=== PATIENT | female | born 1970 | race Caucasian/White ===

== ENCOUNTER 2017-11-09 02:26 | Emergency (ER) | payer MEDICAID ==
[~2017-11-09] VITALS: Ht 165.1 cm; Wt 68.2 kg
[~2017-11-09 02:26] MED LIST: BAC15O TP; CEPH500C5 PO; CHLO500C10 PO; CLON-527 PO; IBUP-1573 PO; IBUP-1985 PO; LEVO175T2 PO; LEVO50TA67 PO; PRED15SO23 PO; PSEU60TA94 PO; ZIPR80CA2 PO
[2017-11-09 02:31] VITALS: BP 118/82
[2017-11-09] MEDS ORDERED: normal saline 1000ML IV soln IVB ONE (02:35)
[2017-11-09] MEDS ORDERED: ondansetron/PF 4mg/2ml inj IV ONE (02:35)
[2017-11-09] MEDS ORDERED: METO10TA3 PO (03:04)
[2017-11-09 03:08] LABS: BASOPHILS % (AUTO) 0.6 % (0-1); EOSINOPHILS # (AUTO) 0.3 X10'3 (0-0.9); EOSINOPHILS % (AUTO) 4.1 % (0-6); HEMATOCRIT 36.7 % (35.0-45.0); HEMOGLOBIN 12.9 g/dl (12.0-16.0); LYMPHOCYTES # (AUTO) 2.1 X10'3 (1.1-4.8); MEAN CORPUSCULAR HEMOGLOBIN 30.7 PG (27.0-31.0); MEAN CORPUSCULAR HGB CONC 35.1 % (33.0-36.5); MEAN CORPUSCULAR VOLUME 87.4 FL (78-98); MEAN PLATELET VOLUME 8.6 FL (7.4-10.4); MONOCYTES # (AUTO) 0.5 X10'3 (0-0.9); MONOCYTES % (AUTO) 7.7 % (2-12); NEUTROPHILS # (AUTO) 3.4 X10'3 (1.8-7.7); NEUTROPHILS % (AUTO) 53.6 % (42-75); PLATELET COUNT 168 X10'3 (140-440); RED CELL DISTRIBUTION WIDTH 12.8 % (11.5-14.5); WHITE BLOOD COUNT 6.3 X10'3 (4.5-11.0)
[2017-11-09 03:12] LABS: URINE HCG NEGATIVE (NEG)
[2017-11-09 03:14] LABS: CLARITY,URINE SLIGHTLY CLOUDY (Clear); COLOR,URINE YELLOW (Yellow); GLUCOSE, URINE NEGATIVE (Neg); KETONES,URINE NEGATIVE (Neg); LEUKOCYTE ESTERASE ,URINE NEGATIVE (Neg); NITRITES, URINE NEGATIVE (Neg); OCCULT BLOOD,URINE NEGATIVE (Neg); PROTEIN,URINE TRACE mg/dl (Neg); UA COLLECTION TYPE CLN CATCH MIDSTREAM; UROBILINOGEN,URINE 0.2 E.U/dL (0.2-1.0)
[2017-11-09 03:20] LABS: ALANINE AMINOTRANSFERASE 29 U/L (12-78); ALBUMIN 3.4 G/DL (3.4-5.0); ALBUMIN/GLOBULIN RATIO 0.9 (1.1-1.5); ALKALINE PHOSPHATASE 52 IU/L (46-116); ANION GAP 9 (8-16); ASPARTATE AMINO TRANSFERASE 24 U/L (10-37); BILIRUBIN,TOTAL 0.4 MG/DL (0.1-1.0); BLOOD UREA NITROGEN 11 MG/DL (7-18); BUN/CREATININE RATIO 10.5 (6.6-38.0); CALCIUM 8.8 MG/DL (8.5-10.1); CHLORIDE 106 MMOL/L (99-107); CREATININE 1.05 MG/DL (0.40-0.90); GLUCOSE 104 MG/DL (70-104); LIPASE 76 U/L (73-393); POTASSIUM 3.1 MMOL/L (3.5-5.1); SODIUM 143 MMOL/L (135-145); TOTAL CARBON DIOXIDE 28.2 MMOL/L (24-32); eGFR 56 ML/MIN
[2017-11-09 03:21] LABS: BACTERIA,URINE 1+ /HPF (Neg); CAL OXALATE CRYSTALS 1+ /HPF (NEGATIVE); MUCUS STRANDS MANY /LPF (Neg); RBC,URINE NONE SEEN /HPF (0-2); SQUAMOUS EPITHELIAL CELL,UR MANY /LPF (FEW); WBC,URINE 0-4 /HPF (0-4)
[2017-11-09 03:24] LABS: URINE AMPHETAMINE SCREEN POSITIVE (Neg); URINE BARBITUATE SCREEN NEGATIVE (Neg); URINE BENZODIAZEPINES SCREEN NEGATIVE (Neg); URINE CANNABINOID SCREEN NEGATIVE (Neg); URINE COCAINE SCREEN NEGATIVE (Neg); URINE METHADONE SCREEN NEGATIVE (Neg); URINE OPIATE SCREEN NEGATIVE (Neg); URINE PHENCYCLIDINE SCREEN NEGATIVE (Neg)
[2017-11-09 03:25] LABS: ETHANOL < 0.010 GM/DL (0.0-0.010)
== END 2017-11-09 03:53 | disposition home or self-care (01) ==
LOC: ER 02:26
DX: K29.00 Acute gastritis without bleeding (principal); E86.0 Dehydration; F15.10 Other stimulant abuse, uncomplicated; K21.9 Gastro-esophageal reflux disease without esophagitis; E03.9 Hypothyroidism, unspecified; Z90.49 Acquired absence of other specified parts of digestive tract; Z79.899 Other long term (current) drug therapy
CPT/HCPCS: 36415; 80053; 80305; 80320; 81001; 81025; 83690; 85025; 96361; 96374; 99284; J2405; J7030

== ENCOUNTER → 2018-01-08 | Emergency (ER) | payer MEDICAID ==
[~2018-01-08] VITALS: Ht 165.1 cm; Wt 76.0 kg
[~2018-01-08] MED LIST changes: -CEPH500C5 PO; +CLIN150C8 PO; +clindamycin 150mg capsule PO ONE; +dexamethasone 4mg tablet PO ONE; +dexamethasone sod phosphate 10mg/ml inj IM STA; +dexamethasone sod phosphate 10mg/ml inj IV STA
[2018-01-08 13:08] VITALS: BP 151/85
== END | disposition home or self-care (01) ==
LOC: ER 13:05
DX: T36.0X5A Adverse effect of penicillins, initial encounter (principal); R22.0 Localized swelling, mass and lump, head; K21.9 Gastro-esophageal reflux disease without esophagitis; F41.9 Anxiety disorder, unspecified; F32.9 Major depressive disorder, single episode, unspecified; E03.9 Hypothyroidism, unspecified; F15.10 Other stimulant abuse, uncomplicated; Z88.0 Allergy status to penicillin; Z90.49 Acquired absence of other specified parts of digestive tract; Z79.899 Other long term (current) drug therapy; Y92.89 Other specified places as the place of occurrence of the external cause
CPT/HCPCS: 99283; J1100; J7030; J8540

== ENCOUNTER 2018-05-07 10:14 | Emergency (ER) | payer MEDICAID ==
[~2018-05-07] VITALS: Ht 167.6 cm; Wt 77.3 kg
[~2018-05-07 10:14] MED LIST changes: -clindamycin 150mg capsule PO ONE; -dexamethasone 4mg tablet PO ONE; -dexamethasone sod phosphate 10mg/ml inj IM STA; -dexamethasone sod phosphate 10mg/ml inj IV STA
[2018-05-07 11:50] LABS: BASOPHILS % (AUTO) 0.9 % (0-1); EOSINOPHILS # (AUTO) 0.3 X10'3 (0-0.9); EOSINOPHILS % (AUTO) 5.3 % (0-6); HEMATOCRIT 31.6 % (35.0-45.0); HEMOGLOBIN 10.5 g/dl (12.0-16.0); LYMPHOCYTES # (AUTO) 1.6 X10'3 (1.1-4.8); LYMPHOCYTES % (AUTO) 30.8 % (21-51); MEAN CORPUSCULAR HEMOGLOBIN 31.2 PG (27.0-31.0); MEAN CORPUSCULAR HGB CONC 33.3 % (33.0-36.5); MEAN CORPUSCULAR VOLUME 93.7 FL (78-98); MEAN PLATELET VOLUME 8.4 FL (7.4-10.4); MONOCYTES # (AUTO) 0.2 X10'3 (0-0.9); MONOCYTES % (AUTO) 3.6 % (2-12); NEUTROPHILS % (AUTO) 59.4 % (42-75); PLATELET COUNT 209 X10'3 (140-440); RED BLOOD COUNT 3.37 X10'6 (4.20-5.60); RED CELL DISTRIBUTION WIDTH 13.5 % (11.5-14.5); WHITE BLOOD COUNT 5.1 X10'3 (4.5-11.0)
[2018-05-07 11:54] LABS: PARTIAL THROMBOPLASTIN TIME 28 SECONDS (22-32); PROTHROMBIN TIME 10.2 SECONDS (9.0-12.0)
[2018-05-07 11:55] LABS: ALANINE AMINOTRANSFERASE 61 U/L (12-78); ALBUMIN 4.4 G/DL (3.4-5.0); ALBUMIN/GLOBULIN RATIO 1.3 (1.1-1.5); ALKALINE PHOSPHATASE 47 IU/L (46-116); ANION GAP 11 (8-16); ASPARTATE AMINO TRANSFERASE 48 U/L (10-37); BILIRUBIN,TOTAL 0.5 MG/DL (0.1-1.0); BLOOD UREA NITROGEN 13 MG/DL (7-18); CALCIUM 9.5 MG/DL (8.5-10.1); CHLORIDE 99 MMOL/L (99-107); GLUCOSE 89 MG/DL (70-104); POTASSIUM 3.6 MMOL/L (3.5-5.1); SODIUM 137 MMOL/L (135-145); TOTAL CARBON DIOXIDE 27.4 MMOL/L (24-32); TOTAL PROTEIN 7.9 G/DL (6.4-8.2); eGFR 44 ML/MIN
[2018-05-07 11:58] LABS: TROPONIN I < 0.04 NG/ML (0.0-0.05)
[2018-05-07 12:34] VITALS: BP 121/77
[2018-05-07 13:38] LABS: URINE HCG NEGATIVE (NEG)
[2018-05-07 13:46] LABS: CLARITY,URINE CLEAR (Clear); COLOR,URINE STRAW (Yellow); GLUCOSE, URINE NEGATIVE (Neg); KETONES,URINE NEGATIVE (Neg); LEUKOCYTE ESTERASE ,URINE NEGATIVE (Neg); NITRITES, URINE NEGATIVE (Neg); OCCULT BLOOD,URINE TRACE-INTACT (Neg); PH,URINE 5.5 (4.8-8.0); PROTEIN,URINE NEGATIVE (Neg); UROBILINOGEN,URINE 0.2 E.U/dL (0.2-1.0)
[2018-05-07 13:49] LABS: UA COLLECTION TYPE CLN CATCH MIDSTREAM
[2018-05-07 13:55] LABS: BACTERIA,URINE FEW /HPF (Neg); RBC,URINE 0-2 /HPF (0-2); SQUAMOUS EPITHELIAL CELL,UR FEW /LPF (FEW); WBC,URINE 0-4 /HPF (0-4)
== END 2018-05-07 12:55 | disposition home or self-care (01) ==
LOC: ER 10:15
DX: R41.0 Disorientation, unspecified (principal); F15.90 Other stimulant use, unspecified, uncomplicated; K21.9 Gastro-esophageal reflux disease without esophagitis; E03.9 Hypothyroidism, unspecified; F41.9 Anxiety disorder, unspecified; F31.9 Bipolar disorder, unspecified; F17.210 Nicotine dependence, cigarettes, uncomplicated; Z90.49 Acquired absence of other specified parts of digestive tract; Z98.890 Other specified postprocedural states; Z88.0 Allergy status to penicillin; Z79.899 Other long term (current) drug therapy
CPT/HCPCS: 36415; 70450; 71045; 80053; 81001; 81025; 84484; 85025; 85610; 85730; 93005; 99284

== ENCOUNTER 2018-12-06 15:43 | Emergency (ER) | payer MEDICAID ==
[~2018-12-06] VITALS: Ht 165.1 cm; Wt 72.0 kg
[~2018-12-06 15:43] MED LIST changes: -PSEU60TA94 PO; +PSEU60TA98 PO
[2018-12-06 16:31] LABS: BASOPHILS % (AUTO) 0.9 % (0-1); EOSINOPHILS # (AUTO) 0.2 X10'3 (0-0.9); EOSINOPHILS % (AUTO) 3.2 % (0-6); HEMATOCRIT 28.2 % (35.0-45.0); HEMOGLOBIN 9.4 g/dl (12.0-16.0); LYMPHOCYTES # (AUTO) 1.5 X10'3 (1.1-4.8); LYMPHOCYTES % (AUTO) 29.9 % (21-51); MEAN CORPUSCULAR HEMOGLOBIN 30.1 PG (27.0-31.0); MEAN CORPUSCULAR HGB CONC 33.4 g/dL (33.0-36.5); MEAN CORPUSCULAR VOLUME 90.2 FL (78-98); MEAN PLATELET VOLUME 7.8 FL (7.4-10.4); MONOCYTES # (AUTO) 0.3 X10'3 (0-0.9); NEUTROPHILS # (AUTO) 3.1 X10'3 (1.8-7.7); PLATELET COUNT 216 X10'3 (140-440); RED BLOOD COUNT 3.13 X10'6 (4.20-5.60); RED CELL DISTRIBUTION WIDTH 18.5 % (11.5-14.5); WHITE BLOOD COUNT 5.1 X10'3 (4.5-11.0)
[2018-12-06 16:40] VITALS: BP 109/63
[2018-12-06 16:46] LABS: ALANINE AMINOTRANSFERASE 64 U/L (12-78); ALBUMIN/GLOBULIN RATIO 1.3 (1.1-1.5); ALKALINE PHOSPHATASE 43 IU/L (46-116); ANION GAP 9 (8-16); ASPARTATE AMINO TRANSFERASE 54 U/L (10-37); BILIRUBIN,TOTAL 0.4 MG/DL (0.1-1.0); BLOOD UREA NITROGEN 16 MG/DL (7-18); BUN/CREATININE RATIO 12.1 (6.6-38.0); CALCIUM 9.2 MG/DL (8.5-10.1); CHLORIDE 108 MMOL/L (99-107); CREATININE 1.32 MG/DL (0.40-0.90); GLUCOSE 67 MG/DL (70-104); POTASSIUM 3.5 MMOL/L (3.5-5.1); SODIUM 143 MMOL/L (135-145); TOTAL CARBON DIOXIDE 25.9 MMOL/L (24-32); TOTAL PROTEIN 7.2 G/DL (6.4-8.2); eGFR 43 ML/MIN
== END 2018-12-06 17:27 | disposition home or self-care (01) ==
LOC: ER 15:44
DX: D64.9 Anemia, unspecified (principal); R51 Headache; R53.83 Other fatigue; F32.9 Major depressive disorder, single episode, unspecified; R56.9 Unspecified convulsions; K21.9 Gastro-esophageal reflux disease without esophagitis; E03.9 Hypothyroidism, unspecified; F41.9 Anxiety disorder, unspecified; F15.90 Other stimulant use, unspecified, uncomplicated; Z90.49 Acquired absence of other specified parts of digestive tract; Z98.890 Other specified postprocedural states; Z88.0 Allergy status to penicillin; Z79.899 Other long term (current) drug therapy; Z60.2 Problems related to living alone
CPT/HCPCS: 36415; 80053; 85025; 99283

== ENCOUNTER 2019-01-03 15:11 | Emergency (ER) | payer MEDICAID ==
[~2019-01-03] VITALS: Ht 167.6 cm; Wt 76.7 kg
--- NOTE | 2019-01-03 16:01 | NUR ---
[facility]PD AT BEDSIDE
[2019-01-03 16:16] VITALS: BP 103/70
--- NOTE | 2019-01-03 16:31 | NUR ---
SOCO completed interview with Pt, no report to be filed. [facility] contacted, they will be sending it sales representative to interview and assess Pt for services.
--- NOTE | 2019-01-03 16:32 | NUR ---
Spoke with Dee from [facility]. Agnes will be to ED in 20-25 minutes to talk with Pt.
--- NOTE | 2019-01-03 16:40 | NUR ---
NANCY FROM [facility] IS IN ROOM.
== END 2019-01-03 17:41 | disposition home or self-care (01) ==
LOC: ER 15:12
DX: M26.601 Right temporomandibular joint disorder, unspecified (principal); E03.9 Hypothyroidism, unspecified; K21.9 Gastro-esophageal reflux disease without esophagitis; F41.9 Anxiety disorder, unspecified; F31.9 Bipolar disorder, unspecified; F15.90 Other stimulant use, unspecified, uncomplicated; Z90.49 Acquired absence of other specified parts of digestive tract; Z98.890 Other specified postprocedural states; Z60.2 Problems related to living alone; Z88.0 Allergy status to penicillin; Z79.899 Other long term (current) drug therapy; Y08.89XA Assault by other specified means, initial encounter; Y93.89 Activity, other specified; Y92.89 Other specified places as the place of occurrence of the external cause; Y99.8 Other external cause status
CPT/HCPCS: 70450; 99284

== ENCOUNTER 2019-01-19 01:28 | Emergency (ER) | payer MEDICAID ==
[~2019-01-19] VITALS: Ht 165.1 cm; Wt 70.0 kg
[2019-01-19 02:22] LABS: BASOPHILS % (AUTO) 0.8 % (0-1); EOSINOPHILS # (AUTO) 0.2 X10'3 (0-0.9); EOSINOPHILS % (AUTO) 4.6 % (0-6); HEMATOCRIT 27.1 % (35.0-45.0); HEMOGLOBIN 8.9 g/dl (12.0-16.0); LYMPHOCYTES # (AUTO) 1.7 X10'3 (1.1-4.8); LYMPHOCYTES % (AUTO) 43.8 % (21-51); MEAN CORPUSCULAR HEMOGLOBIN 29.9 PG (27.0-31.0); MEAN CORPUSCULAR VOLUME 90.8 FL (78-98); MEAN PLATELET VOLUME 8.1 FL (7.4-10.4); MONOCYTES # (AUTO) 0.2 X10'3 (0-0.9); MONOCYTES % (AUTO) 6.2 % (2-12); NEUTROPHILS # (AUTO) 1.8 X10'3 (1.8-7.7); NEUTROPHILS % (AUTO) 44.6 % (42-75); PLATELET COUNT 157 X10'3 (140-440); RED BLOOD COUNT 2.99 X10'6 (4.20-5.60); RED CELL DISTRIBUTION WIDTH 15.7 % (11.5-14.5)
--- NOTE | 2019-01-19 02:24 | NUR ---
Requested patient provide UA. She states, "I can't. I just went before I came back." I requested that the patient only try and she is firm that she absolutely cannot urinate at this time. Dr. Molina is notified.
[2019-01-19 02:35] LABS: ALANINE AMINOTRANSFERASE 51 U/L (12-78); ALBUMIN 3.7 G/DL (3.4-5.0); ALBUMIN/GLOBULIN RATIO 1.2 (1.1-1.5); ALKALINE PHOSPHATASE 32 IU/L (46-116); ANION GAP 8 (8-16); ASPARTATE AMINO TRANSFERASE 66 U/L (10-37); BILIRUBIN,TOTAL 0.3 MG/DL (0.1-1.0); BLOOD UREA NITROGEN 11 MG/DL (7-18); BUN/CREATININE RATIO 7.4 (6.6-38.0); CALCIUM 8.4 MG/DL (8.5-10.1); CHLORIDE 107 MMOL/L (99-107); CREATININE 1.49 MG/DL (0.40-0.90); GLUCOSE 86 MG/DL (70-104); SODIUM 145 MMOL/L (135-145); TOTAL CARBON DIOXIDE 29.7 MMOL/L (24-32); TOTAL PROTEIN 6.9 G/DL (6.4-8.2); eGFR 38 ML/MIN
[2019-01-19 02:37] LABS: POTASSIUM 2.8 MMOL/L (3.5-5.1)
[2019-01-19] MEDS ORDERED: POTA20TA19 PO (02:39)
[2019-01-19] MEDS ORDERED: potassium Cl 20 mEq SR tablet PO STA (02:39)
[2019-01-19 02:53] VITALS: BP 117/65
== END 2019-01-19 02:54 | disposition home or self-care (01) ==
LOC: ER 01:29
DX: S40.022A Contusion of left upper arm, initial encounter (principal); S40.021A Contusion of right upper arm, initial encounter; D64.9 Anemia, unspecified; E87.6 Hypokalemia; H92.09 Otalgia, unspecified ear; K21.9 Gastro-esophageal reflux disease without esophagitis; F41.9 Anxiety disorder, unspecified; F31.9 Bipolar disorder, unspecified; E03.9 Hypothyroidism, unspecified; F17.210 Nicotine dependence, cigarettes, uncomplicated; F15.90 Other stimulant use, unspecified, uncomplicated; Z86.69 Personal history of other diseases of the nervous system and sense organs; Z90.49 Acquired absence of other specified parts of digestive tract; Z98.890 Other specified postprocedural states; Z60.2 Problems related to living alone; Z88.0 Allergy status to penicillin; Z79.899 Other long term (current) drug therapy; X58.XXXA Exposure to other specified factors, initial encounter; Y93.89 Activity, other specified; Y92.89 Other specified places as the place of occurrence of the external cause; Y99.8 Other external cause status
CPT/HCPCS: 36415; 80053; 85025; 99283

== ENCOUNTER 2019-01-20 15:03 | Emergency (ER) | payer MEDICAID ==
[~2019-01-20 15:03] MED LIST changes: +POTA20TA19 PO
--- NOTE | 2019-01-20 15:52 | NUR ---
PT LEFT THE ER AND WAS WALKING DOWN STREET. NURSE CALLED FOR PT AND SHE DID NOT WANT TO CAME BACK
== END 2019-01-20 15:56 | disposition left against medical advice (07) ==
LOC: ER 15:04
DX: Z00.8 Encounter for other general examination (principal); Z53.21 Procedure and treatment not carried out due to patient leaving prior to being seen by health care provider

== ENCOUNTER 2019-02-15 13:27 | Emergency (ER) | payer MEDICAID ==
[~2019-02-15] VITALS: Ht 167.6 cm; Wt 76.8 kg
[2019-02-15] MEDS ORDERED: ACET-2615 PO (13:54)
[2019-02-15] MEDS ORDERED: IBUP-1984 PO (13:54)
[2019-02-15] MEDS ORDERED: ketorolac trometh inj. 60 MG/2 ML VIAL IM ONE (13:55)
[2019-02-15] MEDS ORDERED: acetaminophen 325mg tablet PO ONE (13:55)
[2019-02-15] MEDS ORDERED: proCHLORperazine 10mg tablet PO ONE (13:55)
[2019-02-15 14:44] VITALS: BP 98/73
== END 2019-02-15 14:50 | disposition home or self-care (01) ==
LOC: ER 13:28
DX: R51 Headache (principal); K21.9 Gastro-esophageal reflux disease without esophagitis; E03.9 Hypothyroidism, unspecified; F41.9 Anxiety disorder, unspecified; F31.9 Bipolar disorder, unspecified; F15.90 Other stimulant use, unspecified, uncomplicated; Z86.69 Personal history of other diseases of the nervous system and sense organs; Z90.49 Acquired absence of other specified parts of digestive tract; Z98.890 Other specified postprocedural states; Z60.2 Problems related to living alone; Z88.0 Allergy status to penicillin; Z79.899 Other long term (current) drug therapy
CPT/HCPCS: 96372; 99283; J1885; Q0164

== ENCOUNTER 2019-02-17 18:12 | Emergency (ER) | payer MEDICAID ==
[~2019-02-17] VITALS: Ht 165.1 cm; Wt 70.4 kg
[~2019-02-17 18:12] MED LIST changes: +ACET-2615 PO; +IBUP-1984 PO
[2019-02-17 18:27] VITALS: BP 120/84
[2019-02-17] MEDS ORDERED: DOXY100C2 PO (19:51)
== END 2019-02-17 20:00 | disposition home or self-care (01) ==
LOC: ER 18:12
DX: J32.9 Chronic sinusitis, unspecified (principal); R51 Headache; R05 Cough; K21.9 Gastro-esophageal reflux disease without esophagitis; E03.9 Hypothyroidism, unspecified; F15.90 Other stimulant use, unspecified, uncomplicated; F17.200 Nicotine dependence, unspecified, uncomplicated; Z90.49 Acquired absence of other specified parts of digestive tract; Z98.890 Other specified postprocedural states; Z88.0 Allergy status to penicillin; Z79.899 Other long term (current) drug therapy
CPT/HCPCS: 99283

== ENCOUNTER 2019-03-04 15:00 | Emergency (ER) | payer MEDICAID ==
[~2019-03-04] VITALS: Ht 162.6 cm; Wt 70.0 kg
[~2019-03-04 15:00] MED LIST changes: -POTA20TA19 PO
[2019-03-04 15:12] VITALS: BP 120/64
== END 2019-03-04 18:04 | disposition left against medical advice (07) ==
LOC: ER 15:01
DX: R31.9 Hematuria, unspecified (principal); Z53.21 Procedure and treatment not carried out due to patient leaving prior to being seen by health care provider; Z88.0 Allergy status to penicillin

== ENCOUNTER 2019-03-29 02:01 | Emergency (ER) | payer MEDICAID ==
[~2019-03-29] VITALS: Ht 170.2 cm; Wt 68.0 kg
[~2019-03-29 02:01] MED LIST changes: -ACET-2615 PO; -IBUP-1984 PO
[2019-03-29] MEDS ORDERED: magnesium hydroxide 30ml (MOM) UD suspension PO ONE (02:10)
[2019-03-29] MEDS ORDERED: proparacaine 0.5% ophthalmic drops 15ml EACHEYE ONE (02:15)
[2019-03-29 03:13] VITALS: BP 120/78
== END 2019-03-29 03:43 | disposition home or self-care (01) ==
LOC: ER 02:02
DX: T65.894A Toxic effect of other specified substances, undetermined, initial encounter (principal); H10.213 Acute toxic conjunctivitis, bilateral; K21.9 Gastro-esophageal reflux disease without esophagitis; E03.9 Hypothyroidism, unspecified; F15.90 Other stimulant use, unspecified, uncomplicated; Z90.49 Acquired absence of other specified parts of digestive tract; Z98.890 Other specified postprocedural states; Z88.0 Allergy status to penicillin; Z79.899 Other long term (current) drug therapy; Y92.89 Other specified places as the place of occurrence of the external cause
CPT/HCPCS: 99283

== ENCOUNTER 2019-06-15 10:30 | Emergency (ER) | payer MEDICAID ==
[~2019-06-15] VITALS: Ht 165.1 cm; Wt 73.0 kg
[2019-06-15 10:36] VITALS: BP 119/71
[2019-06-15] MEDS ORDERED: SULF1TAB49 PO (11:18)
[2019-06-15] MEDS ORDERED: sulfamethoxazole/trimethoprim DS (800/160mg) tablet PO ONE (11:20)
[2019-06-15] MEDS ORDERED: TETanus/Pertussis (Acell)/Diphther VAC/PF (Tdap-Adult) 0.5ml syringe IMVAC ONE (11:20)
--- NOTE | 2019-06-15 11:32 | NUR ---
ATTEMPTED TO [facility] PT WOUND, MEDICATED WITH ABX AND TETANUS, PT STATES SHE WILL "GO ELSEWHERE FOR FOLLOW UP" PT STATES "WILL GO SOMEWHERE FOR AN IV" PT INFORMED ME "YOU ARE NOT TOUCHING ME" PT REFUSED ALL MEDS, TREATMENTS AND REFUSED TO ANSWER ANY OF RN QUESTIONS DURING EVALUTION.
== END 2019-06-15 11:45 | disposition home or self-care (01) ==
LOC: ER 10:31
DX: L02.211 Cutaneous abscess of abdominal wall (principal); K21.9 Gastro-esophageal reflux disease without esophagitis; E03.9 Hypothyroidism, unspecified; F41.9 Anxiety disorder, unspecified; F31.9 Bipolar disorder, unspecified; Z90.49 Acquired absence of other specified parts of digestive tract; Z98.890 Other specified postprocedural states; Z60.2 Problems related to living alone; Z59.0 Homelessness; Z86.69 Personal history of other diseases of the nervous system and sense organs; Z88.0 Allergy status to penicillin; Z79.899 Other long term (current) drug therapy
CPT/HCPCS: 90715; 99283

== ENCOUNTER 2019-06-19 12:46 | Emergency (ER) | payer MEDICAID ==
[~2019-06-19] VITALS: Ht 165.1 cm; Wt 75.8 kg
[~2019-06-19 12:46] MED LIST changes: +SULF1TAB49 PO
[2019-06-19 13:09] VITALS: BP 109/76
[2019-06-19] MEDS ORDERED: SULF1TAB49 PO (14:30)
== END 2019-06-19 14:45 | disposition home or self-care (01) ==
LOC: ER 12:47
DX: L02.211 Cutaneous abscess of abdominal wall (principal); K21.9 Gastro-esophageal reflux disease without esophagitis; E03.9 Hypothyroidism, unspecified; Z59.0 Homelessness; Z90.49 Acquired absence of other specified parts of digestive tract; Z98.890 Other specified postprocedural states; Z88.0 Allergy status to penicillin; Z79.899 Other long term (current) drug therapy
CPT/HCPCS: 99283

== ENCOUNTER 2019-06-22 13:56 | Emergency (ER) | payer MEDICAID ==
[~2019-06-22] VITALS: Ht 165.1 cm; Wt 80.0 kg
[2019-06-22 14:21] VITALS: BP 118/81
== END 2019-06-22 15:51 | disposition home or self-care (01) ==
LOC: ER 13:57
DX: L02.211 Cutaneous abscess of abdominal wall (principal); K21.9 Gastro-esophageal reflux disease without esophagitis; E03.9 Hypothyroidism, unspecified; F41.9 Anxiety disorder, unspecified; F31.9 Bipolar disorder, unspecified; Z86.69 Personal history of other diseases of the nervous system and sense organs; Z90.49 Acquired absence of other specified parts of digestive tract; Z60.2 Problems related to living alone; Z59.0 Homelessness; Z98.890 Other specified postprocedural states; Z88.0 Allergy status to penicillin; Z79.899 Other long term (current) drug therapy
CPT/HCPCS: 99284

== ENCOUNTER 2019-07-09 10:44 | Emergency (ER) | payer MEDICAID ==
[~2019-07-09] VITALS: Ht 165.1 cm; Wt 75.9 kg
[~2019-07-09 10:44] MED LIST changes: -SULF1TAB49 PO
[2019-07-09 10:54] VITALS: BP 128/89
[2019-07-09] MEDS ORDERED: DIPH25CA83 PO (12:23)
[2019-07-09] MEDS ORDERED: MUPI22OI30 TOP (12:23)
== END 2019-07-09 12:30 | disposition home or self-care (01) ==
LOC: ER 10:44
DX: L08.9 Local infection of the skin and subcutaneous tissue, unspecified (principal); K21.9 Gastro-esophageal reflux disease without esophagitis; E03.9 Hypothyroidism, unspecified; F41.9 Anxiety disorder, unspecified; F32.9 Major depressive disorder, single episode, unspecified; Z87.440 Personal history of urinary (tract) infections; Z59.0 Homelessness; Z88.0 Allergy status to penicillin; Z90.49 Acquired absence of other specified parts of digestive tract
CPT/HCPCS: 99283

== ENCOUNTER 2019-09-08 13:39 | Emergency (ER) | payer MEDICAID ==
[~2019-09-08] VITALS: Ht 162.6 cm; Wt 68.2 kg
[~2019-09-08 13:39] MED LIST changes: +DIPH25CA83 PO
[2019-09-08 13:47] VITALS: BP 132/88
== END 2019-09-08 14:15 | disposition left against medical advice (07) ==
LOC: ER 13:40
DX: M79.673 Pain in unspecified foot (principal); Z53.21 Procedure and treatment not carried out due to patient leaving prior to being seen by health care provider

== ENCOUNTER 2019-09-24 08:54 | Emergency (ER) | payer MEDICAID ==
[~2019-09-24] VITALS: Ht 162.6 cm; Wt 86.4 kg
[2019-09-24 08:55] VITALS: BP 130/77
--- NOTE | 2019-09-24 09:50 | NUR ---
RAPID STREP TEST DONE
--- NOTE | 2019-09-24 10:05 | NUR ---
XRAY HERE TO DO FOOT XRAY OF BILAT FEET. PT STATES "I THINK THIS SHOULD BE DONE INSIDE" PT INFORMED BECAUSE SHE WILL NOT ANSWER IN SHE HAS HAD FEVER, COUGH OR SOB. PT BEGAN TO YECATHRYN AND CUSS AT STAFF. PT STATES SHE WILL BE AT THE BUS STOP WAITING FOR HER STREP RESULTS. PT INFORMED IF SHE LEAVES SHE WILL BE LEAVING AMA AND NOTABLE TO RECEIVE RESUTLS SHE WILL HAVE TO CALL FOR THEM. PT BEGAN AGAIN TO DEDRA AND CUSS AT THE . SECURITY CALL TO [facility] PT ABLE TO CALM SELF AND STATES SHE WILL REMAIN CALM UNTIL SHE RECEIVES THE RESULTS. PT CONTINUES TO REFUSE XRAY.
== END 2019-09-24 10:36 | disposition home or self-care (01) ==
LOC: ER 08:55
DX: M79.672 Pain in left foot (principal); M79.671 Pain in right foot; J02.8 Acute pharyngitis due to other specified organisms; K21.9 Gastro-esophageal reflux disease without esophagitis; E03.9 Hypothyroidism, unspecified; F41.9 Anxiety disorder, unspecified; F31.9 Bipolar disorder, unspecified; Z86.69 Personal history of other diseases of the nervous system and sense organs; Z90.49 Acquired absence of other specified parts of digestive tract; Z60.2 Problems related to living alone; Z59.0 Homelessness; Z88.0 Allergy status to penicillin; Z79.2 Long term (current) use of antibiotics; Z79.899 Other long term (current) drug therapy
CPT/HCPCS: 87081; 87880; 99283

== ENCOUNTER 2019-09-27 19:06 | Emergency (ER) | payer MEDICAID ==
[~2019-09-27] VITALS: Ht 162.6 cm; Wt 72.6 kg
[2019-09-27 19:53] VITALS: BP 138/83
== END 2019-09-27 19:55 | disposition home or self-care (01) ==
LOC: ER 19:07
DX: M79.671 Pain in right foot (principal); M79.672 Pain in left foot; R05 Cough; R09.81 Nasal congestion; K21.9 Gastro-esophageal reflux disease without esophagitis; E03.9 Hypothyroidism, unspecified; F41.9 Anxiety disorder, unspecified; F31.9 Bipolar disorder, unspecified; Z86.69 Personal history of other diseases of the nervous system and sense organs; Z90.49 Acquired absence of other specified parts of digestive tract; Z98.890 Other specified postprocedural states; Z60.2 Problems related to living alone; Z59.0 Homelessness; Z88.0 Allergy status to penicillin; Z79.899 Other long term (current) drug therapy
CPT/HCPCS: 99281

== ENCOUNTER 2019-11-16 06:29 | Emergency (ER) | payer MEDICAID ==
[~2019-11-16] VITALS: Ht 165.1 cm; Wt 72.8 kg
[2019-11-16 06:58] LABS: CLARITY,URINE CLOUDY (Clear); COLOR,URINE RED (Yellow); GLUCOSE, URINE NEGATIVE (Neg); KETONES,URINE NEGATIVE (Neg); LEUKOCYTE ESTERASE ,URINE LARGE (Neg); NITRITES, URINE POSITIVE (Neg); OCCULT BLOOD,URINE LARGE (Neg); PH,URINE 6.5 (4.8-8.0)
[2019-11-16 07:08] LABS: PROTEIN,URINE 100 mg/dl (Neg)
[2019-11-16 07:09] LABS: UA COLLECTION TYPE CLN CATCH MIDSTREAM
[2019-11-16 07:16] LABS: BACTERIA,URINE 4+ /HPF (Neg); CAL OXALATE CRYSTALS 1+ /HPF (NEGATIVE); MUCUS STRANDS FEW /LPF (Neg); RBC,URINE TNTC /HPF (0-2); SQUAMOUS EPITHELIAL CELL,UR FEW /LPF (FEW); WBC,URINE 50-100 /HPF (0-4)
[2019-11-16 07:44] LABS: BASOPHILS # (AUTO) 0.1 X10'3 (0-0.2); BASOPHILS % (AUTO) 1.2 % (0-1); EOSINOPHILS # (AUTO) 0.2 X10'3 (0-0.9); HEMATOCRIT 33.7 % (35.0-45.0); HEMOGLOBIN 11.2 g/dl (12.0-16.0); LYMPHOCYTES # (AUTO) 1.6 X10'3 (1.1-4.8); LYMPHOCYTES % (AUTO) 24.6 % (21-51); MEAN CORPUSCULAR HEMOGLOBIN 31.9 PG (27.0-31.0); MEAN CORPUSCULAR HGB CONC 33.4 g/dL (33.0-36.5); MEAN CORPUSCULAR VOLUME 95.4 FL (78-98); MEAN PLATELET VOLUME 8.6 FL (7.4-10.4); MONOCYTES # (AUTO) 0.4 X10'3 (0-0.9); MONOCYTES % (AUTO) 5.4 % (2-12); NEUTROPHILS # (AUTO) 4.4 X10'3 (1.8-7.7); NEUTROPHILS % (AUTO) 65.8 % (42-75); PLATELET COUNT 204 X10'3 (140-440); RED BLOOD COUNT 3.53 X10'6 (4.20-5.60); RED CELL DISTRIBUTION WIDTH 14.7 % (11.5-14.5); WHITE BLOOD COUNT 6.7 X10'3 (4.5-11.0)
[2019-11-16 08:06] LABS: ALANINE AMINOTRANSFERASE 67 U/L (12-78); ALBUMIN 3.8 G/DL (3.4-5.0); ALBUMIN/GLOBULIN RATIO 1.2 (1.1-1.5); ALKALINE PHOSPHATASE 49 IU/L (46-116); ANION GAP 6 (8-16); ASPARTATE AMINO TRANSFERASE 97 U/L (10-37); BILIRUBIN,TOTAL 0.4 MG/DL (0.1-1.0); BLOOD UREA NITROGEN 12 MG/DL (7-18); BUN/CREATININE RATIO 7.8 (6.6-38.0); CALCIUM 8.9 MG/DL (8.5-10.1); CHLORIDE 106 MMOL/L (99-107); CREATININE 1.53 MG/DL (0.40-0.90); GLUCOSE 75 MG/DL (70-104); LIPASE 183 U/L (73-393); POTASSIUM 3.4 MMOL/L (3.5-5.1); SODIUM 144 MMOL/L (135-145); TOTAL CARBON DIOXIDE 32.2 MMOL/L (24-32); TOTAL PROTEIN 7.1 G/DL (6.4-8.2); eGFR 36 ML/MIN
[2019-11-16] MEDS ORDERED: morphine 4 MG/ML inj SYRINge IV ONE (08:30)
[2019-11-16] MEDS ORDERED: ketorolac trometh. 30mg/ml inj. IV ONE (08:30)
[2019-11-16] MEDS ORDERED: ondansetron/PF 4mg/2ml inj IV ONE (08:30)
[2019-11-16] MEDS ORDERED: CEPH500C5 PO (09:30)
[2019-11-16] MEDS ORDERED: PHEN-716 PO (09:31)
[2019-11-16] MEDS ORDERED: CefTRIAXone 1000mg IM Kit (w/lidocaine diluent) IM ONE (09:35)
[2019-11-16 11:10] VITALS: BP 91/60
== END 2019-11-16 11:11 | disposition home or self-care (01) ==
LOC: ER 06:29
DX: N39.0 Urinary tract infection, site not specified (principal); R31.9 Hematuria, unspecified; K21.9 Gastro-esophageal reflux disease without esophagitis; Z86.69 Personal history of other diseases of the nervous system and sense organs; E03.9 Hypothyroidism, unspecified; F41.9 Anxiety disorder, unspecified; F31.9 Bipolar disorder, unspecified; Z90.49 Acquired absence of other specified parts of digestive tract; Z98.890 Other specified postprocedural states; Z60.2 Problems related to living alone; Z59.0 Homelessness; Z88.0 Allergy status to penicillin; Z79.899 Other long term (current) drug therapy
CPT/HCPCS: 36415; 76775; 80053; 81001; 83690; 85025; 87088; 87186; 96372; 96374; 96375; 99285; J0696; J1885; J2270; J2405; 87077

== ENCOUNTER 2019-11-20 19:22 | Emergency (ER) | payer MEDICAID ==
[~2019-11-20] VITALS: Ht 165.1 cm; Wt 72.7 kg
[~2019-11-20 19:22] MED LIST changes: +CEPH500C5 PO; +PHEN-716 PO
[2019-11-20 20:18] LABS: BASOPHILS # (AUTO) 0.1 X10'3 (0-0.2); EOSINOPHILS # (AUTO) 0.2 X10'3 (0-0.9); HEMOGLOBIN 10.7 g/dl (12.0-16.0); LYMPHOCYTES # (AUTO) 1.6 X10'3 (1.1-4.8); MONOCYTES # (AUTO) 0.2 X10'3 (0-0.9); NEUTROPHILS # (AUTO) 1.5 X10'3 (1.8-7.7); WHITE BLOOD COUNT 3.6 X10'3 (4.5-11.0)
[2019-11-20 20:20] LABS: EOSINOPHILS % (AUTO) 5.3 % (0-6); HEMATOCRIT 31.4 % (35.0-45.0); LYMPHOCYTES % (AUTO) 45.6 % (21-51); MEAN CORPUSCULAR HEMOGLOBIN 32.6 PG (27.0-31.0); MEAN CORPUSCULAR HGB CONC 34.1 g/dL (33.0-36.5); MEAN CORPUSCULAR VOLUME 95.6 FL (78-98); MEAN PLATELET VOLUME 8.5 FL (7.4-10.4); MONOCYTES % (AUTO) 6.1 % (2-12); PLATELET COUNT 186 X10'3 (140-440); RED BLOOD COUNT 3.28 X10'6 (4.20-5.60); RED CELL DISTRIBUTION WIDTH 14.9 % (11.5-14.5)
[2019-11-20 20:35] LABS: ALANINE AMINOTRANSFERASE 54 U/L (12-78); ALBUMIN 3.3 G/DL (3.4-5.0); ALBUMIN/GLOBULIN RATIO 1.1 (1.1-1.5); ALKALINE PHOSPHATASE 37 IU/L (46-116); ANION GAP 10 (8-16); ASPARTATE AMINO TRANSFERASE 79 U/L (10-37); BILIRUBIN,TOTAL 0.3 MG/DL (0.1-1.0); BLOOD UREA NITROGEN 14 MG/DL (7-18); BUN/CREATININE RATIO 11.7 (6.6-38.0); CALCIUM 8.5 MG/DL (8.5-10.1); CHLORIDE 106 MMOL/L (99-107); GLUCOSE 108 MG/DL (70-104); POTASSIUM 3.2 MMOL/L (3.5-5.1); SODIUM 141 MMOL/L (135-145); TOTAL CARBON DIOXIDE 25.4 MMOL/L (24-32); TOTAL PROTEIN 6.4 G/DL (6.4-8.2); eGFR 48 ML/MIN
[2019-11-20] MEDS ORDERED: acetaminophen 325mg tablet PO ONE ×2 (20:50→20:55)
[2019-11-20 21:20] VITALS: BP 118/79
[2019-11-20] MEDS ORDERED: hydrOXYzine 25 MG tablet PO ONE (21:25)
[2019-11-20] MEDS ORDERED: HYDR-3686 PO (21:34)
== END 2019-11-20 22:05 | disposition home or self-care (01) ==
LOC: ER 19:23
DX: R53.83 Other fatigue (principal); R06.02 Shortness of breath; K21.9 Gastro-esophageal reflux disease without esophagitis; E03.9 Hypothyroidism, unspecified; F41.9 Anxiety disorder, unspecified; F31.9 Bipolar disorder, unspecified; Z90.49 Acquired absence of other specified parts of digestive tract; Z98.890 Other specified postprocedural states; Z86.69 Personal history of other diseases of the nervous system and sense organs; Z88.0 Allergy status to penicillin; Z79.899 Other long term (current) drug therapy
CPT/HCPCS: 71045; 80053; 84484; 85025; 93005; 99285; Q0177

== ENCOUNTER 2019-12-08 17:08 | Emergency (ER) | payer MEDICARE, MEDICAID ==
[~2019-12-08] VITALS: Ht 165.1 cm; Wt 72.7 kg
[~2019-12-08 17:08] MED LIST changes: -BAC15O TP; -CEPH500C5 PO; -CLIN150C8 PO; -IBUP-1573 PO; -PHEN-716 PO; -PSEU60TA98 PO
[2019-12-08 17:13] VITALS: BP 114/61
[2019-12-08] MEDS ORDERED: LORazepam 1 MG tablet PO ONE (18:25)
[2019-12-08 18:28] LABS: BASOPHILS % (AUTO) 1.1 % (0-1); EOSINOPHILS # (AUTO) 0.2 X10'3 (0-0.9); EOSINOPHILS % (AUTO) 3.8 % (0-6); HEMATOCRIT 29.1 % (35.0-45.0); HEMOGLOBIN 9.9 g/dl (12.0-16.0); LYMPHOCYTES # (AUTO) 1.8 X10'3 (1.1-4.8); LYMPHOCYTES % (AUTO) 42.1 % (21-51); MEAN CORPUSCULAR HEMOGLOBIN 32.8 PG (27.0-31.0); MEAN CORPUSCULAR VOLUME 96.4 FL (78-98); MEAN PLATELET VOLUME 8.4 FL (7.4-10.4); MONOCYTES # (AUTO) 0.2 X10'3 (0-0.9); MONOCYTES % (AUTO) 5.8 % (2-12); NEUTROPHILS % (AUTO) 47.2 % (42-75); PLATELET COUNT 190 X10'3 (140-440); RED BLOOD COUNT 3.02 X10'6 (4.20-5.60); RED CELL DISTRIBUTION WIDTH 14.4 % (11.5-14.5); WHITE BLOOD COUNT 4.2 X10'3 (4.5-11.0)
[2019-12-08 18:33] LABS: URINE HCG NEGATIVE (NEG)
[2019-12-08] MEDS ORDERED: OMEP40CA13 PO (18:33)
[2019-12-08] MEDS ORDERED: FERR325T28 PO (18:33)
[2019-12-08 18:39] LABS: ALANINE AMINOTRANSFERASE 128 U/L (12-78); ALBUMIN/GLOBULIN RATIO 1.2 (1.1-1.5); ALKALINE PHOSPHATASE 40 IU/L (46-116); ANION GAP 8 (8-16); ASPARTATE AMINO TRANSFERASE 114 U/L (10-37); BILIRUBIN,TOTAL 0.6 MG/DL (0.1-1.0); BLOOD UREA NITROGEN 24 MG/DL (7-18); BUN/CREATININE RATIO 16.6 (6.6-38.0); CALCIUM 8.9 MG/DL (8.5-10.1); CHLORIDE 104 MMOL/L (99-107); CREATININE 1.45 MG/DL (0.40-0.90); ETHANOL < 0.010 GM/DL (0.0-0.010); GLUCOSE 82 MG/DL (70-104); POTASSIUM 3.3 MMOL/L (3.5-5.1); SODIUM 141 MMOL/L (135-145); TOTAL CARBON DIOXIDE 29.2 MMOL/L (24-32); TOTAL PROTEIN 7.3 G/DL (6.4-8.2); eGFR 39 ML/MIN
[2019-12-08 18:46] LABS: URINE AMPHETAMINE SCREEN POSITIVE (Neg); URINE BARBITUATE SCREEN NEGATIVE (Neg); URINE BENZODIAZEPINES SCREEN NEGATIVE (Neg); URINE CANNABINOID SCREEN NEGATIVE (Neg); URINE COCAINE SCREEN NEGATIVE (Neg); URINE METHADONE SCREEN NEGATIVE (Neg); URINE OPIATE SCREEN NEGATIVE (Neg); URINE PHENCYCLIDINE SCREEN NEGATIVE (Neg)
--- NOTE | 2019-12-08 19:03 | NUR ---
PT packet faxed to [facility]
--- NOTE | 2019-12-08 20:58 | NUR ---
Attempted to review discharge paperwork with patient, patient expressed dissatisfaction with discharge, states homeless, "nowhere to go", states "no one" to call, resources provided, stated "you can give me all the information you want and I'm going to tell you to stick it up your ass". Patient refusing to get up, get dressed, or sign paperwork, security notified.
--- NOTE | 2019-12-08 21:20 | NUR ---
Security at bedside to assist with escorting Pt for DC. Pt is irritable, but able to put her walking boot on and ambulate to BR to change her clothes. Pt with steady gait.
== END 2019-12-08 21:37 | disposition home or self-care (01) ==
LOC: ER 17:08
DX: F31.9 Bipolar disorder, unspecified (principal); R45.851 Suicidal ideations; R45.850 Homicidal ideations; F41.9 Anxiety disorder, unspecified; K21.9 Gastro-esophageal reflux disease without esophagitis; E03.9 Hypothyroidism, unspecified; Z90.49 Acquired absence of other specified parts of digestive tract; Z98.890 Other specified postprocedural states; Z59.0 Homelessness; Z88.0 Allergy status to penicillin; Z79.899 Other long term (current) drug therapy
CPT/HCPCS: 36415; 80053; 80305; 80320; 81025; 85025; 99284

== ENCOUNTER 2019-12-13 23:01 | Emergency (ER) | payer MEDICARE, MEDICAID ==
[~2019-12-13] VITALS: Ht 165.1 cm; Wt 72.0 kg
[~2019-12-13 23:01] MED LIST changes: -CHLO500C10 PO; -CLON-527 PO; -DIPH25CA83 PO; +FERR325T28 PO; -IBUP-1985 PO; -LEVO175T2 PO; +OMEP40CA13 PO; -PRED15SO23 PO; -ZIPR80CA2 PO
[2019-12-13 23:10] VITALS: BP 138/79
[2019-12-13] MEDS ORDERED: HYDR-3686 PO (23:45)
[2019-12-13] MEDS ORDERED: IBUP-1984 PO (23:45)
[2019-12-13] MEDS ORDERED: ketorolac tromethamine 15mg/ml inj. IM ONE (23:45)
== END 2019-12-14 00:03 | disposition home or self-care (01) ==
LOC: ER 23:02
DX: M79.671 Pain in right foot (principal); F41.9 Anxiety disorder, unspecified; K21.9 Gastro-esophageal reflux disease without esophagitis; E03.9 Hypothyroidism, unspecified; F31.9 Bipolar disorder, unspecified; Z86.69 Personal history of other diseases of the nervous system and sense organs; Z90.49 Acquired absence of other specified parts of digestive tract; Z88.0 Allergy status to penicillin; Z79.899 Other long term (current) drug therapy
CPT/HCPCS: 96372; 99283; J1885

== ENCOUNTER 2020-01-09 23:15 | Emergency (ER) | payer MEDICARE, MEDICAID ==
[~2020-01-09] VITALS: Ht 165.1 cm; Wt 69.0 kg
[2020-01-09 23:21] VITALS: BP 132/81
--- NOTE | 2020-01-09 23:33 | NUR ---
[facility] CONTACTED LOG #[id number]
--- NOTE | 2020-01-09 23:45 | NUR ---
went in to assess patient. pt refuses to talk to medical staff. unable to complete assessment. per md baez post assessment of pt, pt is no suicidal and good to be discharged home.
[2020-01-10] MEDS ORDERED: OMEP-50 PO (22:04)
[2020-01-10] MEDS ORDERED: LEVO75TA PO (22:18)
== END 2020-01-09 23:48 | disposition home or self-care (01) ==
LOC: ER 23:17
DX: M79.671 Pain in right foot (principal); F32.9 Major depressive disorder, single episode, unspecified; K21.9 Gastro-esophageal reflux disease without esophagitis; E03.9 Hypothyroidism, unspecified; F41.9 Anxiety disorder, unspecified; F31.9 Bipolar disorder, unspecified; Z90.49 Acquired absence of other specified parts of digestive tract; Z98.890 Other specified postprocedural states; Z88.0 Allergy status to penicillin; Z79.899 Other long term (current) drug therapy
CPT/HCPCS: 99281

== ENCOUNTER 2020-01-10 10:26 | Emergency (ER) | payer MEDICARE, MEDICAID ==
[~2020-01-10] VITALS: Ht 165.1 cm; Wt 68.2 kg
--- NOTE | 2020-01-10 11:30 | NUR ---
Pt reports increased stress and hopelessness r/t homelessness. She indicates having been at the [facility], but currently is banned after having gone to the Friday meeting allowing her back in. Pt reports s/i without a plan. She is dx bipolar and is not on a mood stabilizer or any psychotropics. Pt has utilized [facility] resources in the past including a stay @ [facility]. She reports meth use 4 days ago. Mood is tearful. Pt denies audio/visual hallucinations at this time. Pt maintains good eye contact and is cooperative with staff.
[2020-01-10 11:31] LABS: BASOPHILS # (AUTO) 0.1 X10'3 (0-0.2); BASOPHILS % (AUTO) 1.9 % (0-1); EOSINOPHILS # (AUTO) 0.1 X10'3 (0-0.9); EOSINOPHILS % (AUTO) 3.3 % (0-6); HEMATOCRIT 31.4 % (35.0-45.0); HEMOGLOBIN 10.7 g/dl (12.0-16.0); LYMPHOCYTES # (AUTO) 1.9 X10'3 (1.1-4.8); LYMPHOCYTES % (AUTO) 44.2 % (21-51); MEAN CORPUSCULAR HEMOGLOBIN 33.1 PG (27.0-31.0); MEAN CORPUSCULAR HGB CONC 34.1 g/dL (33.0-36.5); MEAN CORPUSCULAR VOLUME 97.1 FL (78-98); MEAN PLATELET VOLUME 8.6 FL (7.4-10.4); MONOCYTES # (AUTO) 0.3 X10'3 (0-0.9); MONOCYTES % (AUTO) 6.5 % (2-12); NEUTROPHILS # (AUTO) 1.9 X10'3 (1.8-7.7); NEUTROPHILS % (AUTO) 44.1 % (42-75); PLATELET COUNT 203 X10'3 (140-440); RED BLOOD COUNT 3.23 X10'6 (4.20-5.60); RED CELL DISTRIBUTION WIDTH 13.5 % (11.5-14.5); WHITE BLOOD COUNT 4.2 X10'3 (4.5-11.0)
[2020-01-10 11:43] LABS: ALANINE AMINOTRANSFERASE 48 U/L (12-78); ALBUMIN 4.4 G/DL (3.4-5.0); ALBUMIN/GLOBULIN RATIO 1.5 (1.1-1.5); ALKALINE PHOSPHATASE 40 IU/L (46-116); ANION GAP 10 (8-16); ASPARTATE AMINO TRANSFERASE 47 U/L (10-37); BILIRUBIN,TOTAL 0.9 MG/DL (0.1-1.0); BLOOD UREA NITROGEN 21 MG/DL (7-18); BUN/CREATININE RATIO 15.4 (6.6-38.0); CALCIUM 9.1 MG/DL (8.5-10.1); CHLORIDE 102 MMOL/L (99-107); CREATININE 1.36 MG/DL (0.40-0.90); GLUCOSE 76 MG/DL (70-104); SODIUM 139 MMOL/L (135-145); TOTAL PROTEIN 7.4 G/DL (6.4-8.2); eGFR 41 ML/MIN
[2020-01-10 12:05] LABS: CLARITY,URINE TURBID (Clear); COLOR,URINE YELLOW (Yellow); GLUCOSE, URINE NEGATIVE (Neg); KETONES,URINE NEGATIVE (Neg); LEUKOCYTE ESTERASE ,URINE SMALL (Neg); NITRITES, URINE POSITIVE (Neg); OCCULT BLOOD,URINE MODERATE (Neg); PH,URINE 5.5 (4.8-8.0); PROTEIN,URINE TRACE mg/dl (Neg); URINE HCG NEGATIVE (NEG)
[2020-01-10 12:08] LABS: UA COLLECTION TYPE CLN CATCH MIDSTREAM
[2020-01-10 12:12] LABS: MUCUS STRANDS NONE SEEN /LPF (Neg); SQUAMOUS EPITHELIAL CELL,UR MODERATE /LPF (FEW); TRANSITIONAL EPI CELLS,URINE MODERATE /HPF
[2020-01-10 12:13] LABS: BACTERIA,URINE 4+ /HPF (Neg); RBC,URINE 0-2 /HPF (0-2); WBC,URINE 50-100 /HPF (0-4)
--- NOTE | 2020-01-10 13:00 | NUR ---
Report given to MUNDO Momin. Pt then escorted by staff from ED16 to OF21.
--- NOTE | 2020-01-10 13:02 | NUR ---
Patient arrived to bed 21 at this time. Eating lunch. No s/sx of distress noted. Will cont. to monitor.
[2020-01-10 13:46] LABS: URINE AMPHETAMINE SCREEN POSITIVE (Neg); URINE BARBITUATE SCREEN NEGATIVE (Neg); URINE BENZODIAZEPINES SCREEN NEGATIVE (Neg); URINE CANNABINOID SCREEN NEGATIVE (Neg); URINE COCAINE SCREEN NEGATIVE (Neg); URINE METHADONE SCREEN NEGATIVE (Neg); URINE OPIATE SCREEN NEGATIVE (Neg); URINE PHENCYCLIDINE SCREEN NEGATIVE (Neg)
--- NOTE | 2020-01-10 13:52 | NUR ---
FAXED PACKET TO [facility]
--- NOTE | 2020-01-10 15:45 | NUR ---
PATIENT RESTING IN BED.
[2020-01-10] MEDS ORDERED: ibuprofen tablet 400 MG TABLET PO ONE (17:45)
[2020-01-10] MEDS ORDERED: ketorolac tromethamine 15mg/ml inj. IM ONE (17:50)
--- NOTE | 2020-01-10 18:32 | NUR ---
TRANSFERRING CARE TO NATALIE FLOWER, NOC NURSE.
--- NOTE | 2020-01-10 18:50 | NUR ---
Patient received a toradol injection. Patient tolerated well. Continue to monitor.
--- NOTE | 2020-01-10 19:55 | NUR ---
Patient ambulatory to BR, steady gait. No limping or impairment observed. Continue to monitor.
--- NOTE | 2020-01-10 20:09 | NUR ---
Patient sleeping on right side. No distress observed. Continue to monitor.
--- NOTE | 2020-01-10 21:50 | NUR ---
Patient ambulatory to BR, steady gait. No distress observed. Continue to monitor.
[2020-01-10] MEDS ORDERED: OMEP-50 PO (22:04)
[2020-01-10] MEDS ORDERED: LEVO75TA PO (22:18)
--- NOTE | 2020-01-10 23:41 | NUR ---
Patient sleeping on left side. No distress observed. Continue to monitor.
--- NOTE | 2020-01-11 02:24 | NUR ---
patient sleeping and got up to use restroom about an hour ago.
--- NOTE | 2020-01-11 06:19 | NUR ---
Osman crowell in [facility] - 01/11/20 at 0600 by JEY PT AMBULATING TO BR WITH STEADY GAIT.
--- NOTE | 2020-01-11 06:29 | NUR ---
PT SLEEPING QUIETLY AT THIS TIME.
[2020-01-11] MEDS ORDERED: levoTHYROXINE 25mcg tablet PO SCH (07:00)
[2020-01-11] MEDS: pantoprazole 40mg Tablet.DR PO SCH (08:23)
[2020-01-11] MEDS: levoTHYROXINE 75mcg tablet PO SCH (08:23)
[2020-01-11] MEDS ORDERED: ibuprofen tablet 400 MG TABLET PO ONE (08:45)
--- NOTE | 2020-01-11 11:00 | NUR ---
Osman crowell in [facility] - 01/11/20 at 1402 by JEY PT APPRO FOR AGE. COLORING AND TALKING WITH NATHALY HSU. PT SMILING AND LAUGHING AND CONVERSATION APPRO
--- NOTE | 2020-01-11 16:58 | NUR ---
PT AWAKE EATING MIC CRACKERS.
--- NOTE | 2020-01-11 18:30 | NUR ---
SITTING UP IN BED HAVING DINNER . AMBULATED TO BATHROOM WITH STEADY GAIT . UPDATED PLAN OF CARE. PT COROPORATIVE . POOR EYE CONTACT IN THE DIRECT LINE OF SIGHT OF NURSING STAFF . WILL CONTINUE TO MONIOTR AND REASSESS NEEDED
--- NOTE | 2020-01-11 19:28 | NUR ---
PT SLEEPING ON RIGHT SIDE IN BED . RESP EVEN AND UNLABORED . PT IN THE DIRECT LINE OF SIGHT OF NURSING STAFF . WILL CONTINUE TO MONITOR AND REASSESS
--- NOTE | 2020-01-11 20:30 | NUR ---
PT SLEEPING SUPINE IN BED WITH HOB ELEVATED 30 DEGREES . RESP EVEN AND UNLABORED WILL CONTINUE TO MONITOR AND REASSESS NEEDED PT IN THE DIRECT LINE OF SIGHT OF NURSING STAFF .
--- NOTE | 2020-01-11 21:45 | NUR ---
PT UP OUT OF BED TO BATHROOM . STEADY GAIT DENIES ANY NEEDS OR WANTS AT THIS TIME . BACK TO BED ON HER LEFT SIDE . COVERED PT WITH 2 WARM BLANKETS AND PUT WATER AT BEDSIDE .
--- NOTE | 2020-01-11 22:30 | NUR ---
NO CHANGES TO PREVIOUS ASSESSMENT . PT COMFORTABLE RESP EVEN AND UNLABORED
--- NOTE | 2020-01-11 23:33 | NUR ---
PT SLEEPING PEACFULLY IN BED ON HER RIGHT SIDE . RESP EVEN UNLABORED PT IN THE DIRECT LINE OF SIGHT OF NURSING STAFF . WILL CONTINUE TO MONITOR AND REASSESS NEEDED .
--- NOTE | 2020-01-12 00:45 | NUR ---
pt sleeping supine resp even and unlabored aurosable to voice . IN the direct line of sight of nursing staff . reported off to Rocco FLOWER
--- NOTE | 2020-01-12 00:49 | NUR ---
ASSUMED CARE FROM WILLY FLOWER NO QUESTIONS OR CONCERNS AFTER ASSUMING CARE PATIENT IN BED COVERS ON EYES CLOSED RR EVEN UN LABORED NO OBSERVABLE S/S OF ACUTE STRESS AT THIS TIME WILL CONTINUE TO MONITOR
--- NOTE | 2020-01-12 02:57 | NUR ---
PATIENT IN BED COVERS ON LYING ON LEFT SIDE EYES CLOSED RR EVEN UN LABORED NO OBSERVABLE S/S OF ACUTE STRESS AT THIS TIME WILL CONTINUE TO MONITOR
--- NOTE | 2020-01-12 04:51 | NUR ---
PATIENT IN BED COVERS ON LYING ON RIGHT SIDE EYES CLOSED RR EVEN UN LABORED NO OBSERVABLE S/S OF ACUTE STRESS AT THIS TIME WILL CONTINUE TO MONITOR
--- NOTE | 2020-01-12 05:50 | NUR ---
PATIENT IN BED ON RIGHT SIDE COVERS ON EYES CLOSED RR EVEN UN LABORED NO OBSERVABLE S/S OF ACUTE STRESS AT THIS TIME
[2020-01-12 06:00] VITALS: BP 104/61
[2020-01-12] MEDS: pantoprazole 40mg Tablet.DR PO SCH (07:56)
[2020-01-12] MEDS: levoTHYROXINE 75mcg tablet PO SCH (07:56)
[2020-01-12] MEDS ORDERED: PANT40TA4 PO (12:40)
[2020-01-12] MEDS ORDERED: SYN0.088T PO (12:40)
--- NOTE | 2020-01-13 08:47 | NUR ---
CALLED TO HAVE PT. CALL US BACK. PT. GIVEN NO ANTIBIOTIC, PT. NEEDS KEFLEX 500MG PO BID FOR 7 DAYS #[id number] CALLED IN TO A PHARMACY
== END 2020-01-12 09:37 ==
LOC: ER 10:27
DX: R45.851 Suicidal ideations (principal); K21.9 Gastro-esophageal reflux disease without esophagitis; E03.9 Hypothyroidism, unspecified; F41.9 Anxiety disorder, unspecified; F31.9 Bipolar disorder, unspecified; Z90.49 Acquired absence of other specified parts of digestive tract; Z98.890 Other specified postprocedural states; Z88.0 Allergy status to penicillin; Z79.899 Other long term (current) drug therapy
CPT/HCPCS: 36415; 80053; 80305; 81001; 81025; 84439; 84443; 85025; 87077; 87088; 87186; 96372; 99285; J1885

== ENCOUNTER 2020-01-24 20:10 | Emergency (ER) | payer MEDICARE, MEDICAID ==
[~2020-01-24 20:10] MED LIST changes: -FERR325T28 PO; +LEVO100T9 PO; -LEVO50TA67 PO; +NICO-687 TD; -OMEP40CA13 PO; +PANT40TA54 PO; +VENL150T3 PO
[2020-01-24 20:23] VITALS: BP 94/64
[2020-01-24 20:40] LABS: COLOR,URINE YELLOW (Yellow); GLUCOSE, URINE NEGATIVE (Neg); KETONES,URINE NEGATIVE (Neg); LEUKOCYTE ESTERASE ,URINE TRACE (Neg); OCCULT BLOOD,URINE LARGE (Neg); PH,URINE 5.5 (4.8-8.0); PROTEIN,URINE 30 mg/dl (Neg); URINE HCG NEGATIVE (NEG)
[2020-01-24 20:52] LABS: CLARITY,URINE SLIGHTLY CLOUDY (Clear); UA COLLECTION TYPE CLN CATCH MIDSTREAM
[2020-01-24 20:53] LABS: NITRITES, URINE NEGATIVE (Neg); WBC,URINE 50-100 /HPF (0-4)
[2020-01-24 20:54] LABS: BACTERIA,URINE FEW /HPF (Neg); MUCUS STRANDS MODERATE /LPF (Neg); RBC,URINE 0-2 /HPF (0-2); SQUAMOUS EPITHELIAL CELL,UR FEW /LPF (FEW)
[2020-01-24] MEDS ORDERED: ketorolac trometh inj. 60 MG/2 ML VIAL IM ONE (21:05)
[2020-01-24] MEDS ORDERED: NITR100C6 PO (21:06)
== END 2020-01-24 21:23 | disposition home or self-care (01) ==
LOC: ER 20:11
DX: G89.29 Other chronic pain (principal); M54.9 Dorsalgia, unspecified; N39.0 Urinary tract infection, site not specified; K21.9 Gastro-esophageal reflux disease without esophagitis; E03.9 Hypothyroidism, unspecified; F31.9 Bipolar disorder, unspecified; F41.9 Anxiety disorder, unspecified; R11.2 Nausea with vomiting, unspecified; R10.9 Unspecified abdominal pain; Z90.49 Acquired absence of other specified parts of digestive tract; Z98.890 Other specified postprocedural states; Z88.0 Allergy status to penicillin; Z79.899 Other long term (current) drug therapy
CPT/HCPCS: 81001; 81025; 87077; 87088; 87186; 96372; 99283; J1885

== ENCOUNTER 2020-01-27 10:45 | Emergency (ER) | payer MEDICARE, MEDICAID ==
[~2020-01-27] VITALS: Ht 165.1 cm; Wt 68.2 kg
[~2020-01-27 10:45] MED LIST changes: +NITR100C6 PO
[2020-01-27 10:59] VITALS: BP 106/67
== END 2020-01-27 12:51 | disposition home or self-care (01) ==
LOC: ER 10:45
DX: M79.671 Pain in right foot (principal); K21.9 Gastro-esophageal reflux disease without esophagitis; E03.9 Hypothyroidism, unspecified; G89.29 Other chronic pain; F41.9 Anxiety disorder, unspecified; F31.9 Bipolar disorder, unspecified; Z86.69 Personal history of other diseases of the nervous system and sense organs; Z90.49 Acquired absence of other specified parts of digestive tract; Z98.890 Other specified postprocedural states; Z88.0 Allergy status to penicillin; Z79.899 Other long term (current) drug therapy
CPT/HCPCS: 99281

== ENCOUNTER 2020-03-13 09:32 | Emergency (ER) | payer MEDICARE, MEDICAID ==
[~2020-03-13] VITALS: Ht 165.1 cm; Wt 72.6 kg
[2020-03-13 11:20] VITALS: BP 110/78
[2020-03-13] MEDS ORDERED: ketorolac trometh. 30mg/ml inj. IM ONE (11:40)
[2020-03-13] MEDS: ketorolac trometh. 30mg/ml inj. IM ONE ×2 (11:43→11:47)
== END 2020-03-13 11:48 | disposition home or self-care (01) ==
LOC: ER 09:33
DX: R04.0 Epistaxis (principal); M79.671 Pain in right foot; K21.9 Gastro-esophageal reflux disease without esophagitis; E03.9 Hypothyroidism, unspecified; G89.29 Other chronic pain; F41.9 Anxiety disorder, unspecified; F31.9 Bipolar disorder, unspecified; R51.9 Headache, unspecified; Z86.69 Personal history of other diseases of the nervous system and sense organs; Z90.49 Acquired absence of other specified parts of digestive tract; Z98.890 Other specified postprocedural states; Z88.0 Allergy status to penicillin; Z79.899 Other long term (current) drug therapy
CPT/HCPCS: 96372; 99283; J1885

== ENCOUNTER 2020-07-12 17:27 | Emergency (ER) | payer MEDICARE, MEDICAID ==
[~2020-07-12] VITALS: Ht 165.1 cm; Wt 75.5 kg
--- NOTE | 2020-07-12 18:42 | NUR ---
The patient is a 49 year old female who self presented to the ER asking for a mental health evaluation. She is currently homeless in the [facility] and has been staying either in her car or at the [facility]. Today she was told she could not [facility] to disruptive behaviors. She has a long history of substance abuse (methamphetamines) She stated that she has been clean for the past 4 weeks. SHe reports derrogatory voices. She denies that they are telling her to harm herself. She is very depressed, self loaothing, helpless, hopeless, paranoid, guilty about her kids. She stated that she does not feel she can manage herself in the community. She stated that she is having racing thoughts. She stated she has been waiting for a bed at a treatment center in [place].
[2020-07-12 18:46] LABS: URINE HCG NEGATIVE (NEG)
[2020-07-12] MEDS ORDERED: LEVO100T9 PO (18:48)
[2020-07-12 18:52] LABS: URINE AMPHETAMINE SCREEN NEGATIVE (Neg); URINE BARBITUATE SCREEN NEGATIVE (Neg); URINE BENZODIAZEPINES SCREEN NEGATIVE (Neg); URINE CANNABINOID SCREEN NEGATIVE (Neg); URINE COCAINE SCREEN NEGATIVE (Neg); URINE METHADONE SCREEN NEGATIVE (Neg); URINE OPIATE SCREEN NEGATIVE (Neg); URINE PHENCYCLIDINE SCREEN NEGATIVE (Neg)
[2020-07-12] MEDS ORDERED: olanzapine 10mg tablet PO ONE (19:15)
--- NOTE | 2020-07-12 19:23 | NUR ---
Reviewed case with Petros GALVEZ and medications ordered.
--- NOTE | 2020-07-12 19:39 | NUR ---
Lab here to draw blood and the patient is cooperative.
[2020-07-12 19:54] LABS: BASOPHILS # (AUTO) 0.1 X10'3 (0-0.2); BASOPHILS % (AUTO) 1.2 % (0-1); EOSINOPHILS # (AUTO) 0.3 X10'3 (0-0.9); EOSINOPHILS % (AUTO) 3.7 % (0-6); HEMOGLOBIN 11.9 g/dl (12.0-16.0); LYMPHOCYTES # (AUTO) 2.4 X10'3 (1.1-4.8); LYMPHOCYTES % (AUTO) 32.7 % (21-51); MEAN CORPUSCULAR VOLUME 94.2 FL (78-98); MEAN PLATELET VOLUME 8.8 FL (7.4-10.4); MONOCYTES # (AUTO) 0.3 X10'3 (0-0.9); MONOCYTES % (AUTO) 4.8 % (2-12); NEUTROPHILS # (AUTO) 4.2 X10'3 (1.8-7.7); NEUTROPHILS % (AUTO) 57.6 % (42-75); PLATELET COUNT 215 X10'3 (140-440); RED BLOOD COUNT 3.71 X10'6 (4.20-5.60); RED CELL DISTRIBUTION WIDTH 13.5 % (11.5-14.5); WHITE BLOOD COUNT 7.3 X10'3 (4.5-11.0)
[2020-07-12 20:06] LABS: ALANINE AMINOTRANSFERASE 51 U/L (12-78); ALBUMIN 3.5 G/DL (3.4-5.0); ALBUMIN/GLOBULIN RATIO 0.9 (1.1-1.5); ALKALINE PHOSPHATASE 56 IU/L (46-116); ANION GAP 7 (8-16); ASPARTATE AMINO TRANSFERASE 45 U/L (10-37); BILIRUBIN,TOTAL 0.2 MG/DL (0.1-1.0); BLOOD UREA NITROGEN 14 MG/DL (7-18); BUN/CREATININE RATIO 10.4 (6.6-38.0); CALCIUM 9.2 MG/DL (8.5-10.1); CHLORIDE 102 MMOL/L (99-107); CREATININE 1.34 MG/DL (0.40-0.90); GLUCOSE 93 MG/DL (70-104); POTASSIUM 3.7 MMOL/L (3.5-5.1); SODIUM 138 MMOL/L (135-145); TOTAL CARBON DIOXIDE 28.8 MMOL/L (24-32); TOTAL PROTEIN 7.2 G/DL (6.4-8.2); eGFR 42 ML/MIN
[2020-07-12 20:15] LABS: ETHANOL < 0.010 GM/DL (0.0-0.010)
[2020-07-12 20:20] LABS: ACETAMINOPHEN < 2.0 UG/ML (10-30)
--- NOTE | 2020-07-12 20:30 | NUR ---
The patient appears to be sleeping.
--- NOTE | 2020-07-12 22:11 | NUR ---
The patient appears to be sleeping
--- NOTE | 2020-07-13 00:17 | NUR ---
The patient appears to be sleeping
--- NOTE | 2020-07-13 03:23 | NUR ---
The patient appears to be sleeping
--- NOTE | 2020-07-13 04:45 | NUR ---
Osman crowell in [facility] - 07/13/20 at 0503 by ANDREA The patient up to the desk and asking for a snack which was given. She was also given her ankle monitor blueprint maker and was encouraged to charge he monitor.
--- NOTE | 2020-07-13 05:02 | NUR ---
Packet to [facility]
--- NOTE | 2020-07-13 06:30 | NUR ---
RCVD report from MUNDO Connell, pt is laying on her right side, eyes closed, regular breathing present, no needs at this time
--- NOTE | 2020-07-13 07:30 | NUR ---
pt is asleep, no needs at this time
--- NOTE | 2020-07-13 07:42 | NUR ---
rcvd call from Madhuri @ [place] office, needs med clearance
[2020-07-13] MEDS: levoTHYROXINE 100mcg tablet PO SCH (08:33)
--- NOTE | 2020-07-13 08:45 | NUR ---
p[t awake, ate breakfast, accepted medication, no needs at this time
--- NOTE | 2020-07-13 09:57 | NUR ---
pt ambulated to the bathroom, no needs at this time, calm
--- NOTE | 2020-07-13 10:33 | NUR ---
pt supine in bed, calm, no needs at this time
--- NOTE | 2020-07-13 11:30 | NUR ---
pt requests something for anxiety
[2020-07-13] MEDS ORDERED: LORazepam 1 MG tablet PO ONE (12:10)
--- NOTE | 2020-07-13 12:35 | NUR ---
PT RESTING IN BED, NO NEEDS AT THIS TIME
[2020-07-13 12:48] LABS: CLARITY,URINE CLEAR (Clear); COLOR,URINE YELLOW (Yellow); GLUCOSE, URINE NEGATIVE (Neg); KETONES,URINE NEGATIVE (Neg); LEUKOCYTE ESTERASE ,URINE NEGATIVE (Neg); NITRITES, URINE NEGATIVE (Neg); OCCULT BLOOD,URINE TRACE-INTACT (Neg); PROTEIN,URINE NEGATIVE (Neg); UROBILINOGEN,URINE 0.2 E.U/dL (0.2-1.0)
[2020-07-13 12:56] LABS: UA COLLECTION TYPE VOIDED
[2020-07-13 12:57] LABS: WBC,URINE 0-4 /HPF (0-4)
[2020-07-13 12:58] LABS: BACTERIA,URINE 1+ /HPF (Neg); MUCUS STRANDS NONE SEEN /LPF (Neg); RBC,URINE NONE SEEN /HPF (0-2); SQUAMOUS EPITHELIAL CELL,UR FEW /LPF (FEW)
--- NOTE | 2020-07-13 13:35 | NUR ---
COVID TEST WAS INVALID, WILL COLLECT A NEW SAMPLE.
--- NOTE | 2020-07-13 14:25 | NUR ---
PT IS SUPINE IN BED, EYES CLOSED, REGULAR BREATHING PRESENT, NO NEEDS AT THIS TIME
--- NOTE | 2020-07-13 15:30 | NUR ---
PT IS SUPINE IN BED, NO NEEDS AT THIS TIME
--- NOTE | 2020-07-13 16:35 | NUR ---
PT IS SUPINE IN BED, NO NEEDS AT THIS TIME
--- NOTE | 2020-07-13 17:53 | NUR ---
Pt supine in bed, awake, no needs at this time
--- NOTE | 2020-07-13 19:00 | NUR ---
Pt eating dinner. No needs at this time.
--- NOTE | 2020-07-13 20:00 | NUR ---
Pt resting comfortably, respirations normal, no s/s of distress.
--- NOTE | 2020-07-13 21:00 | NUR ---
Pt resting comfortably, respirations normal, no s/s of distress.
--- NOTE | 2020-07-14 | NUR ---
Pt resting comfortably, sitter in hallway. Respirations normal, no s/s of distress.
--- NOTE | 2020-07-14 01:00 | NUR ---
Pt resting comfortably, sitter in hallway. Respirations normal, no s/s of distress.
--- NOTE | 2020-07-14 02:39 | NUR ---
Pt resting comfortably, sitter in hallway. Respirations normal, no s/s of distress.
[2020-07-14 08:38] VITALS: BP 112/72
[2020-07-14] MEDS: levoTHYROXINE 100mcg tablet PO SCH (08:43)
[2020-07-14] MEDS ORDERED: diphenhydrAMINE 25mg capsule PO ONE (08:50)
[2020-07-14] MEDS ORDERED: OLANZapine 2.5MG tablet PO SCH (09:00)
[2020-07-14] MEDS ORDERED: nicotine 7mg patch - 24hr TD SCH (09:00)
[2020-07-14] MEDS ORDERED: olanzapine 10mg tablet PO SCH (09:00)
--- NOTE | 2020-07-14 09:46 | NUR ---
Nurse to nurse report given to MUNDO Bloom at [facility] in [place]. Arranging for placement. Facility will get back to us if accepted.
--- NOTE | 2020-07-14 10:15 | NUR ---
Pt accepted at [facility] in [place] by Dr. Jang. Facility dispatcher states awaiting receiving room to open before they will receive report. Receiving nurse to call later today with report.
--- NOTE | 2020-07-14 12:58 | NUR ---
OFFERED PATIENT SEROQUEL PER MD FOR ANXIETY, SHE DECLINED. DOESNT WANT ANYTHING ELSE AT THIS TIME.
--- NOTE | 2020-07-14 14:08 | NUR ---
Awaiting transport at 1700; up ad jerrod to restroom. No s/s of distress. Will continue to monitor. Visible to nurses station.
--- NOTE | 2020-07-14 16:55 | NUR ---
Report given to MUNDO Diggs at [facility] in [place]. Pt to be admitted under Dr. Jang. Awaiting transport scheduled for 1700. Pt resting in [facility], no s/s of distress.
--- NOTE | 2020-07-14 17:00 | NUR ---
Security notified that pt vehicle will remain in ER parking lot. 2011 Lyssa Brooks (familia alvarez).
== END 2020-07-14 17:29 ==
LOC: ER 17:27
DX: R45.851 Suicidal ideations (principal); Z20.822 Contact with and (suspected) exposure to COVID-19; F23 Brief psychotic disorder; K21.9 Gastro-esophageal reflux disease without esophagitis; E03.9 Hypothyroidism, unspecified; G89.29 Other chronic pain; F41.9 Anxiety disorder, unspecified; F31.9 Bipolar disorder, unspecified; Z86.69 Personal history of other diseases of the nervous system and sense organs; Z87.440 Personal history of urinary (tract) infections; Z90.49 Acquired absence of other specified parts of digestive tract; Z98.890 Other specified postprocedural states; Z60.2 Problems related to living alone; Z59.0 Homelessness; Z88.0 Allergy status to penicillin; Z79.899 Other long term (current) drug therapy
CPT/HCPCS: 36415; 80053; 80305; 80320; 80329; 81001; 81025; 84443; 85025; 87635; 99285; C9803

== ENCOUNTER 2020-08-11 21:03 | Emergency (ER) | payer MEDICARE, MEDICAID ==
[~2020-08-11] VITALS: Ht 165.1 cm; Wt 81.8 kg
[~2020-08-11 21:03] MED LIST changes: -NICO-687 TD; -NITR100C6 PO; -PANT40TA54 PO; -VENL150T3 PO
[2020-08-11 21:07] VITALS: BP 121/75
[2020-08-11] MEDS ORDERED: TETanus/Pertussis (Acell)/Diphther VAC/PF (Tdap-Adult) 0.5ml syringe IMVAC ONE (21:55)
[2020-08-11] MEDS ORDERED: HYDROcodone/acetaminophen 10/325mg tab PO ONE (21:55)
[2020-08-11] MEDS ORDERED: HYDR-3972 PO (21:58)
== END 2020-08-11 22:40 | disposition home or self-care (01) ==
LOC: ER 21:04
DX: S67.193A Crushing injury of left middle finger, initial encounter (principal); K21.9 Gastro-esophageal reflux disease without esophagitis; E03.9 Hypothyroidism, unspecified; G89.29 Other chronic pain; F41.9 Anxiety disorder, unspecified; F31.9 Bipolar disorder, unspecified; Z86.69 Personal history of other diseases of the nervous system and sense organs; Z90.49 Acquired absence of other specified parts of digestive tract; Z98.890 Other specified postprocedural states; Z72.89 Other problems related to lifestyle; Z60.2 Problems related to living alone; Z59.0 Homelessness; Z88.0 Allergy status to penicillin; Z79.899 Other long term (current) drug therapy; W23.0XXA Caught, crushed, jammed, or pinched between moving objects, initial encounter; Y93.89 Activity, other specified; Y92.89 Other specified places as the place of occurrence of the external cause; Y99.8 Other external cause status
CPT/HCPCS: 29130; 73140; 90471; 90715; 99283

== ENCOUNTER 2020-10-27 16:48 | Emergency (ER) | payer MEDICARE, MEDICAID ==
[~2020-10-27] VITALS: Ht 165.1 cm; Wt 80.0 kg
[2020-10-27 16:49] VITALS: BP 109/77
[2020-10-27] MEDS ORDERED: AMOX-422 PO (17:15)
== END 2020-10-27 17:28 | disposition home or self-care (01) ==
LOC: ER 16:48
DX: K08.89 Other specified disorders of teeth and supporting structures (principal); E03.9 Hypothyroidism, unspecified; F31.9 Bipolar disorder, unspecified; K21.9 Gastro-esophageal reflux disease without esophagitis; Z56.0 Unemployment, unspecified; Z88.0 Allergy status to penicillin
CPT/HCPCS: 99283

== ENCOUNTER 2021-01-28 15:11 | Inpatient (IN) | payer MEDICARE, MEDICAID ==
[~2021-01-28] VITALS: Ht 165.1 cm; Wt 81.5 kg
--- NOTE | 2021-01-28 20:02 | NUR ---
PT'S VS RECHECKED, WAITING IN LOBBY WITH A FRIEND
--- NOTE | 2021-01-28 21:01 | NUR ---
PT WAITING COOPERATIVELY IN [facility] BED 3, ER, REPORTS THAT SHE HAS BEEN OFF HER MEDICATIONS FOR ONE MONTH, HAS INTERMITTENT EPISODES WHERE "I FEEL LIKE I WANT TO RAGE ON SOMEONE AND HURT SOMEONE." SHE REPORTS SHE HAS NOT ACTUALLY HURT ANYONE YET. SHE STATES IT IS "ANYONE THAT IS AROUND ME." SHE HAS RELAPSED ON DRUGS RECENTLY, BUT DENIES USE FOR 72 HRS.
[2021-01-28 21:54] LABS: BASOPHILS % (AUTO) 0.8 % (0-1); EOSINOPHILS # (AUTO) 0.3 X10'3 (0-0.9); EOSINOPHILS % (AUTO) 5.5 % (0-6); HEMATOCRIT 34.4 % (35.0-45.0); HEMOGLOBIN 11.4 g/dl (12.0-16.0); LYMPHOCYTES # (AUTO) 2.3 X10'3 (1.1-4.8); LYMPHOCYTES % (AUTO) 45.2 % (21-51); MEAN CORPUSCULAR HEMOGLOBIN 29.8 PG (27.0-31.0); MEAN CORPUSCULAR HGB CONC 33.1 g/dL (33.0-36.5); MEAN PLATELET VOLUME 8.5 FL (7.4-10.4); MONOCYTES # (AUTO) 0.4 X10'3 (0-0.9); MONOCYTES % (AUTO) 7.7 % (2-12); NEUTROPHILS # (AUTO) 2.1 X10'3 (1.8-7.7); NEUTROPHILS % (AUTO) 40.8 % (42-75); PLATELET COUNT 252 X10'3 (140-440); RED BLOOD COUNT 3.82 X10'6 (4.20-5.60); RED CELL DISTRIBUTION WIDTH 14.6 % (11.5-14.5); WHITE BLOOD COUNT 5.1 X10'3 (4.5-11.0)
[2021-01-28 22:15] LABS: ALANINE AMINOTRANSFERASE 20 U/L (12-78); ALBUMIN 3.5 G/DL (3.4-5.0); ALBUMIN/GLOBULIN RATIO 1.1 (1.1-1.5); ALKALINE PHOSPHATASE 114 IU/L (46-116); ANION GAP 9 (8-16); ASPARTATE AMINO TRANSFERASE 18 U/L (10-37); BILIRUBIN,TOTAL 0.3 MG/DL (0.1-1.0); BLOOD UREA NITROGEN 9 MG/DL (7-18); BUN/CREATININE RATIO 8.6 (6.6-38.0); CALCIUM 8.8 MG/DL (8.5-10.1); CHLORIDE 110 MMOL/L (99-107); CREATININE 1.05 MG/DL (0.40-0.90); GLUCOSE 119 MG/DL (70-104); SODIUM 146 MMOL/L (135-145); TOTAL CARBON DIOXIDE 27.4 MMOL/L (24-32); TOTAL PROTEIN 6.8 G/DL (6.4-8.2); eGFR 56 ML/MIN
[2021-01-28 22:18] LABS: POTASSIUM 2.7 MMOL/L (3.5-5.1)
[2021-01-28 22:20] LABS: ETHANOL < 0.010 GM/DL (0.0-0.010)
[2021-01-28 22:34] LABS: URINE HCG NEGATIVE (NEG)
--- NOTE | 2021-01-28 22:43 | NUR ---
PATIENT'S PACKET WAS SENT TO [facility].
[2021-01-28 22:46] LABS: URINE AMPHETAMINE SCREEN POSITIVE (Neg); URINE BARBITUATE SCREEN NEGATIVE (Neg); URINE BENZODIAZEPINES SCREEN NEGATIVE (Neg); URINE CANNABINOID SCREEN POSITIVE (Neg); URINE COCAINE SCREEN NEGATIVE (Neg); URINE METHADONE SCREEN NEGATIVE (Neg); URINE OPIATE SCREEN NEGATIVE (Neg); URINE PHENCYCLIDINE SCREEN NEGATIVE (Neg)
[2021-01-29] MEDS: potassium CL 10mEq/100ml bag 100 ML IV SCH ×3 (00:33→02:47)
[2021-01-29] MEDS ORDERED: potassium chloride 10mEq ER tablet PO SCH (01:10)
[2021-01-29] MEDS ORDERED: potassium chloride 10mEq ER tablet PO ONE (01:10)
[2021-01-29 04:59] LABS: ALBUMIN 3.1 G/DL (3.4-5.0); ANION GAP 8 (8-16); BLOOD UREA NITROGEN 8 MG/DL (7-18); BUN/CREATININE RATIO 9.6 (6.6-38.0); CALCIUM 8.2 MG/DL (8.5-10.1); CHLORIDE 110 MMOL/L (99-107); CREATININE 0.83 MG/DL (0.40-0.90); GLUCOSE 93 MG/DL (70-104); POTASSIUM 3.3 MMOL/L (3.5-5.1); SODIUM 144 MMOL/L (135-145); TOTAL CARBON DIOXIDE 25.8 MMOL/L (24-32); eGFR 73 ML/MIN
[2021-01-29] MEDS ORDERED: OLAN5TAB5 PO (06:42)
[2021-01-29] MEDS ORDERED: PROP10TA10 PO (06:42)
[2021-01-29] MEDS ORDERED: TOPI50CA5 PO (06:42)
[2021-01-29] MEDS ORDERED: LEVO25TA2 PO (06:51)
--- NOTE | 2021-01-29 07:19 | NUR ---
Patient came over from Main ED at 0700. Patient now appears to be sleeping on right side. Patient given a warm blanket on arrival. No distress observed. Continue to monitor.
[2021-01-29] MEDS ORDERED: TOPI50TA24 PO (07:24)
--- NOTE | 2021-01-29 08:05 | NUR ---
Patient sitting up and eating breakfast. No distress observed. Continue to monitor.
[2021-01-29] MEDS: topiramate 25mg tablet PO SCH (08:24)
[2021-01-29] MEDS: levoTHYROXINE 125mcg tablet PO SCH (08:24)
[2021-01-29] MEDS: propranolol 10mg tablet PO SCH ×3 (08:24→20:14)
--- NOTE | 2021-01-29 10:01 | NUR ---
Patient sleeping on left side. No distress observed. Continue to monitor.
--- NOTE | 2021-01-29 11:50 | NUR ---
Patient sat up and called RN over to speak to her. Patient needs to make a phone call to the Social Security Office at 1300. RN will give patient the phone. No distress observed. Continue to monitor.
--- NOTE | 2021-01-29 13:10 | NUR ---
Patient at nurses station using phone to call Social Security Office. Patient gets agitated and starts talking loudly and rudely to SS person and eventually hangs up on them. Patient goes back to her bed and eats lunch.
--- NOTE | 2021-01-29 13:32 | NUR ---
Pt's IV was removed from left forearm. Catheter intact. Dressing applied.
--- NOTE | 2021-01-29 13:55 | NUR ---
2 Counselors from [facility] evaluating patient to go to a Drug Rehab. Patient gets hostile and states she's going to kill herself. Patient kept her head covered with the blanket. Continue to monitor.
--- NOTE | 2021-01-29 15:43 | NUR ---
Patient sleeping on right side. No distress observed. Continue to monitor.
--- NOTE | 2021-01-29 17:19 | NUR ---
Patient ambulatory, steady gait to BR. Then back to bed. No distress observed. Continue to monitor.
--- NOTE | 2021-01-29 18:43 | NUR ---
assumed care of pt, pt does not want to discuss anything, asked to be left alone to rest.
--- NOTE | 2021-01-29 19:39 | NUR ---
pt is sleeping, awoke to eat her dinner and then back to sleep.
[2021-01-29] MEDS: OLANZAPINE 5 MG TABLET PO SCH (20:14)
--- NOTE | 2021-01-29 22:59 | NUR ---
pt continues to sleep, no s/s of distress noted.
--- NOTE | 2021-01-30 02:00 | NUR ---
pt continues to sleep, rr unlabored.
--- NOTE | 2021-01-30 03:35 | NUR ---
pt is sleeping, no s/s of distress noted.
--- NOTE | 2021-01-30 06:30 | NUR ---
Received pt sleeping. RR even and unlabored. Pt appears to be resting comfortably.
[2021-01-30] MEDS: levoTHYROXINE 125mcg tablet PO SCH (07:00)
[2021-01-30] MEDS: topiramate 25mg tablet PO SCH (08:00)
[2021-01-30] MEDS: propranolol 10mg tablet PO SCH ×3 (08:00→20:16)
--- NOTE | 2021-01-30 08:30 | NUR ---
Pt remains sleeping; now on her left side. RR even and labored appears comfortable.
--- NOTE | 2021-01-30 11:57 | NUR ---
Pt has been sleeping most of the morning. She was up for breakfast then went right back to sleep. RR even and unlabored. Appears to be comfortable.
--- NOTE | 2021-01-30 11:59 | NUR ---
Pt has been accepted upstairs at [facility].
--- NOTE | 2021-01-30 12:42 | NUR ---
Patient ambulatory to BR, steady gait. No distress observed. Continue to monitor.
[2021-01-30 14:40] VITALS: BP 115/71
[2021-01-30] MEDS ORDERED: mag hydrox/Alum hydrox/simeth 30ml oral suspension PO PRN (14:50)
[2021-01-30] MEDS ORDERED: acetaminophen 325mg tablet PO PRN ×2 (14:50)
[2021-01-30] MEDS ORDERED: magnesium hydroxide 30ml (MOM) UD suspension PO PRN (14:50)
--- NOTE | 2021-01-30 17:42 | NUR ---
ADMIT TO [facility] Pt is a 50 y/o female admitted to [facility] at 1440 for DTS. Pt self presented to the ED for DTS due to "anger, rage, thoughts". Tox screen +methamphetamine. Reports she has not been taking medications. Stressors: homelessness and co-occurring substance use disorder Escorted to the unit by SUSAN Lynn via wheelchair. Safety check completed and belongings inventoried. Pt presents irritable, but cooperative with admission process. Pt is guarded and states "I don't want to talk about any of that" when asked about reason for admit. Oriented to unit.
[2021-01-30 20:00] VITALS: BP 129/63
[2021-01-30] MEDS: OLANZAPINE 5 MG TABLET PO SCH (20:17)
--- NOTE | 2021-01-31 02:38 | NUR ---
Nursing Progress Note: Legal hold: 5150 Client on involuntary status for GD. Report received from MNUDO Leija with use of SBAR. Why are they here: Pt is a 50 y/o female admitted to [facility] at 1440 for DTS. Pt self presented to the ED for DTS due to "anger, rage, thoughts". Tox screen +methamphetamine. Reports she has not been taking medications. Assessment What has happened this shift: The patient spent the night in her bed. She was irritable when wakened, and did not want to talk beyond denying all MH symptoms. She accepted medications, but stayed in her bed. S/I, H/I: Denies A/VH: Denies Sleep: See sleep assessment ADL's: Independent Group attendance: N/A Were meds taken: Yes Any med S/E: No Mental Status Exam Appearance: Disheveled, dark hair not brushed, wearing street clothes Eye contact: Poor Behavior: Irritable, isolative, guarded Speech: Pressured Mood: Irritable Affect: Blunted Thought process: Not known Thought Content: Not known Cognition: Alert Insight: Poor Judgment: Poor Interventions PRN's used: Therapeutic interventions: Provided 1:1 assessment with therapeutic communication and active listening, medication administration/education/monitoring, encouragement of personal hygiene, encouragement to participate in unit activities, behavior monitoring and intervention as needed; reality orientation, Q15 minute safety checks. Restraints/seclusion/emergency medication: N/A Justification: Patient is gravely disabled and unable to formulate a plan for food, senior care and clothing. Pt continues to require medication adjustment and monitoring in a safe and therapeutic environment until placement found.
[2021-01-31 07:30] VITALS: BP 113/83
[2021-01-31] MEDS: levoTHYROXINE 125mcg tablet PO SCH (07:33)
[2021-01-31] MEDS: topiramate 25mg tablet PO SCH (07:34)
[2021-01-31] MEDS: propranolol 10mg tablet PO SCH ×4 (07:35→20:44)
[2021-01-31 08:00] VITALS: BP 113/83
[2021-01-31 09:28] LABS: HEMOGLOBIN A1C 5.7 % (4.5-6.2)
[2021-01-31 09:29] LABS: CHOL/HDL RATIO 3.6 (0.00-4.99); CHOLESTEROL 217 MG/DL (0-200); HDL CHOLESTEROL 61 MG/DL (35-60); LDL CHOLESTEROL 126 MG/DL (50-100); TRIGLYCERIDES 100 MG/DL (20-135)
[2021-01-31] MEDS: LORazepam 1 MG tablet PO PRN (10:25)
[2021-01-31 10:30] VITALS: BP 107/74
[2021-01-31] MEDS: loperamide 2mg capsule PO PRN (10:31)
[2021-01-31 13:20] VITALS: BP 108/68
--- NOTE | 2021-01-31 13:58 | NUR ---
Nursing Progress Note: Legal hold: 5150 Client on involuntary status for DTS Report received from nurse with use of SBAR: MUNDO Nolen Why are they here: Pt is a 50 y/o female admitted to [facility] at 1440 for DTS. Pt self presented to the ED for DTS due to "anger, rage, thoughts". Tox screen +methamphetamine. Reports she has not been taking medications. Assessment What has happened this shift: Received pt. sleeping restlessly in bed at the beginning of the shift, she was awoken by staff to attend breakfast in the Group Room. Afterwards, pt. returned immediately back to bed, as she did with each subsequent meal throughout the day. This freelance copywriter attempted to complete 1:1 at bedside, pt. denies any S/I, H/I, A/V/JACKSON, and no delusional statements made. Pt's speech is soft and she responds to direct questions only with a 1-2 word responses, covering her face with a blanket intermittently. Pt. states in a dismissive way, "I'm fine." Later, at approximately 1030, pt. c/o SOB r/t anxiety, she appeared visibly anxious AEB restlessly thrashing in her bed. V/S were obtained and WNL, and bilateral lung sounds clear to auscultation. PRN Ativan was administered along with Imodium for c/o diarrhea. Pt. reported effectiveness and made no further c/o SOB. This was further endorsed to Dr. Macias when he came to evaluate pt. and no new orders obtained. Will continue to monitor. S/I, H/I: Denies A/VH: Denies, does not appear to be internally preoccupied. Sleep: Pt. naps throughout the day, getting up to attend meals only ADL's: Pt. requires direction and encouragement Group attendance: No Were meds taken: Yes Any med S/E: None Mental Status Exam Appearance: Hair and clothing disheveled r/t laying in bed Eye contact: Poor, pt. covers her head with blankets during 1:1 Behavior: Cooperative, fatigued, withdrawn, restless, anxious, guarded, and isolative Speech: Soft, pt. responds to direct questions only with a 1-2 word response Mood: Guarded Affect: Constricted Thought process: Poverty of thought with possible thought blocking Thought Content: Unable to assess, however pt. presents with anxiety Cognition: A&O X3 Insight: Poor Judgment: Poor Interventions PRN's used: Ativan and Imodium Therapeutic interventions: Introduced self and established rapport, ensured contract for safety, maintained a safe and therapeutic environment, provided clear and simple instructions, encouraged participation on the unit, monitored behaviors and need for intervention, and maintained Q15min safety checks. Restraints/seclusion/emergency medication: N/A Justification of Continued Inpatient Treatment: Pt. requires a safe and supportive environment abd medication adjustments.
--- NOTE | 2021-01-31 14:50 | NUR ---
Assessment Presenting Issues: Pt was 5150 due to concerns of DTS after she reports SI. Interventions: SS attempted to engage pt in completing her psychosocial assessment however, pt was very lethargic and not able to participate in the assessment. Plan: SS will try again tomorrow morning. Saskia Del Rosario LCSW Addendum: 01/31/21 at 1459 by Saskia Del Rosario Amended: Links added.
[2021-01-31] MEDS: nicotine 14mg patch - 24hr TD SCH (15:21)
[2021-01-31 20:00] VITALS: BP 97/63
[2021-01-31] MEDS: OLANZAPINE 5 MG TABLET PO SCH (20:21)
--- NOTE | 2021-02-01 01:06 | NUR ---
Nursing Progress Note: Juju Yang Legal hold: 5150 Client on involuntary status for DTS Report received from nurse with use of SBAR: Moises FLOWER Why are they here: Pt is a 50 y/o female admitted to [facility] at 1440 for DTS. Pt self presented to the ED for DTS due to "anger, rage, thoughts". Tox screen +methamphetamine. Reports she has not been taking medications. Assessment What has happened this shift: Received pt. lying in bed sleeping at change of shift, awoke pt for 1:1 assessment, pt was cooperative but did not want to converse and only responds with 1-2 word responses. She denies MH symptoms and states she is "good. Declined snacks and took all HS medication and continued to isolate in her room. S/I, H/I: Denies A/VH: Denies, does not appear to be internally preoccupied. Sleep: ADL's: Pt. requires direction and encouragement Group attendance: No Were meds taken: Yes Any med S/E: None Mental Status Exam Appearance: Hair and clothing disheveled r/t laying in bed Eye contact: Poor Behavior: Cooperative, fatigued, withdrawn, guarded, and isolative Speech: Soft, pt. responds to direct questions only with a 1-2 word response Mood: Guarded Affect: Constricted Thought process: Poverty of thought with possible thought blocking Thought Content: Unable to assess Cognition: A&O X3 Insight: Poor Judgment: Poor Interventions PRN's used: Therapeutic interventions: Introduced self and established rapport, ensured contract for safety, maintained a safe and therapeutic environment, provided clear and simple instructions, encouraged participation on the unit, monitored behaviors and need for intervention, and maintained Q15min safety checks. Restraints/seclusion/emergency medication: N/A Justification of Continued Inpatient Treatment: Pt. requires a safe and supportive environment abd medication adjustments.
[2021-02-01] MEDS: levoTHYROXINE 125mcg tablet PO SCH (07:32)
[2021-02-01] MEDS: propranolol 10mg tablet PO SCH ×3 (07:32→21:00)
[2021-02-01] MEDS: atorvastatin 20mg tablet PO SCH (07:32)
[2021-02-01] MEDS: topiramate 25mg tablet PO SCH (07:32)
[2021-02-01 08:00] VITALS: BP 117/82
[2021-02-01] MEDS: nicotine 14mg patch - 24hr TD SCH (08:00)
[2021-02-01] MEDS: LORazepam 1 MG tablet PO PRN ×2 (10:51→16:57)
[2021-02-01] MEDS: loperamide 2mg capsule PO PRN (10:53)
--- NOTE | 2021-02-01 12:09 | NUR ---
CM Presenting Issues: Pt recently relapsed & began using meth again, pt had attempted to complete a [facility] screening to access inpatient B[facility]NIE treatment prior to admission @ [facility]. Interventions: SS had t/c w/[facility] CM, per t/c [facility] CM wants to meet w/pt sometime today to complete her BONNIE screening w/[facility] services. SS met w/pt and engaged her in discussion re her interest in inpatient BONNIE programs, per discussion pt continues to express interest in accessing BONNIE treatment/services and agreed to meet /[facility] CM @ 2:00 PM to day. Care team informed. Saskia Del Rosario LCSW Addendum: 02/01/21 at 1228 by Saskia Del Rosario Amended: Links added.
[2021-02-01 13:40] VITALS: BP 122/81
--- NOTE | 2021-02-01 13:49 | NUR ---
Nursing Progress Note: Legal hold: 5150 Client on involuntary status for DTS Report received from nurse with use of SBAR: MUNDO De Leon Why are they here: Pt is a 50 y/o female admitted to [facility] at 1440 for DTS. Pt self presented to the ED for DTS due to "anger, rage, thoughts". Tox screen +methamphetamine. Reports she has not been taking medications. Assessment What has happened this shift: Received pt. sleeping in bed at the beginning of the shift, she awoke and accompanied others to receive coffee in the Group Room. Afterwards, pt. again returned immediately back to bed. This caption writer attempted to complete 1:1, however pt. continues to cover her head during assessment and does not engage in the conversation. She continues to deny al MH s/s and covers her head with the blanket. Later in the morning, pt. again c/o SOB r/t anxiety, and she appeared visibly anxious AEB restlessly thrashing in her bed. Pt's V/S remain WNL, and her lung sounds are clear bilaterally to auscultation. PRN Ativan was administered along with Imodium for c/o diarrhea X2. Pt. again reported effectiveness, and education was provided by this caption writer to notify staff of any subsequent feelings of anxiety, SOB, or diarrhea. She reported understanding. Pt. again remained in bed throughout much of the day, but did attend group. Per LILI Kruger, pt. will have a meeting with a employment case manager from a substance abuse treatment program this afternoon, pt reports understanding. S/I, H/I: Denies A/VH: Denies, does not appear to be internally preoccupied. Sleep: Sleep hours are 9, and pt. continues to nap throughout most of the day. She does attend group. ADL's: Pt. requires direction and encouragement Group attendance: Yes Were meds taken: Pt. refused Nicotine patch, stated it gave her "Weird dreams," as it was left on at HS. This caption writer placed an intervention to remind staff to remove at HS. Any med S/E: None Mental Status Exam Appearance: Hair and clothing disheveled r/t laying in bed Eye contact: Poor, pt. covers her head with blankets during 1:1 Behavior: Cooperative, fatigued, withdrawn, restless, anxious, guarded, and isolative Speech: Soft, pt. responds to direct questions only with a 1-2 word response Mood: Guarded Affect: Constricted Thought process: Poverty of thought with possible thought blocking Thought Content: Unable to assess, however pt. presents with anxiety Cognition: A&O X3 Insight: Poor Judgment: Poor Interventions PRN's used: Ativan and Imodium Therapeutic interventions: Ensured contract for safety, maintained a safe and therapeutic environment, provided clear and simple instructions, encouraged participation on the unit, monitored behaviors and need for intervention, provided active listening and positive encouragement, and maintained Q15min safety checks. Restraints/seclusion/emergency medication: N/A Justification of Continued Inpatient Treatment: LENNY Johnson, pt. was started back on her home medications and continues to require a safe and supportive environment. He will encourage rehab.
[2021-02-01 19:00] VITALS: BP 91/55
[2021-02-01] MEDS: OLANZAPINE 5 MG TABLET PO SCH (20:12)
--- NOTE | 2021-02-02 02:10 | NUR ---
Nursing Progress Note: Juju Legal hold: 5150 Client on involuntary status for DTS Report received from nurse with use of SBAR: MUNDO De Leon Why are they here: Pt is a 50 y/o female admitted to [facility] at 1440 for DTS. Pt self presented to the ED for DTS due to "anger, rage, thoughts". Tox screen +methamphetamine. Reports she has not been taking medications. Assessment What has happened this shift: Received pt. sleeping in bed at change of shift. Pt was groggy and a little difficult to arouse. Pt stated she was fine and didnt need anything. Denies MH symptoms and just wanted to sleep. Pt had some snacks, took all HS mediations and went back to bed. S/I, H/I: Denies A/VH: Denies, does not appear to be internally preoccupied. Sleep: ADL's: Pt. requires direction and encouragement Group attendance: Yes Were meds taken: yes Any med S/E: None Mental Status Exam Appearance: Hair and clothing disheveled r/t laying in bed Eye contact: Poor, pt. covers her head with blankets during 1:1 Behavior: Cooperative, fatigued, withdrawn, guarded, and isolative Speech: Soft, pt. responds to direct questions only with a 1-2 word response Mood: Guarded Affect: Constricted Thought process: Poverty of thought with possible thought blocking Thought Content: just wants to sleep Cognition: A&O X3 Insight: Poor Judgment: Poor Interventions PRN's used: Therapeutic interventions: Ensured contract for safety, maintained a safe and therapeutic environment, provided clear and simple instructions, encouraged participation on the unit, monitored behaviors and need for intervention, provided active listening and positive encouragement, and maintained Q15min safety checks. Restraints/seclusion/emergency medication: N/A Justification of Continued Inpatient Treatment: LENNY Johnson, pt. was started back on her home medications and continues to require a safe and supportive environment. He will encourage rehab.
[2021-02-02 07:14] VITALS: BP 106/79
[2021-02-02] MEDS: propranolol 10mg tablet PO SCH ×3 (07:20→20:01)
[2021-02-02] MEDS: levoTHYROXINE 125mcg tablet PO SCH (07:20)
[2021-02-02] MEDS: topiramate 25mg tablet PO SCH ×2 (07:20→20:13)
[2021-02-02] MEDS: atorvastatin 20mg tablet PO SCH (07:20)
[2021-02-02] MEDS: nicotine 14mg patch - 24hr TD SCH (08:00)
[2021-02-02] MEDS: LORazepam 1 MG tablet PO PRN ×3 (11:06→20:11)
--- NOTE | 2021-02-02 11:25 | NUR ---
Met with Patient to discuss going to [facility] and Patient was not interested in receiving treatment. I asked Patient about talking to [place] yesterday and she stated "It's not part of my plan, don't ask me anything because I was given the phone and told what to say" I then asked Patient if she felt like she needed drug treatment and she said "It's not part of my plan." I let Patient know that she needs to participate in her own treatment and that I would not be calling [facility] for her since that is not part of her plan. Patient seemed quite irritable. Deyanira Truong Substance Use Navigator
[2021-02-02 13:32] VITALS: BP 92/52
--- NOTE | 2021-02-02 14:42 | NUR ---
Initial: Pt admit for bipolar disorder with psychotic features. Currently on a regular diet documented with 100% PO intake throughout LOS. LBM 02/01, documented with diarrhea. Pt receiving PRN Imodium and did not report any loose stools this morning per physical assessment. No documented edema or wounds. No nutrition diagnosis at this time. Will continue to follow. Recommendations: 1) Continue regular diet 2) Offer snacks for satiety; monitor need for additional protein 3) Bowel care per rx 4) Weekly scaled weights Addendum: 02/02/21 at [address] Amended: Links added.
--- NOTE | 2021-02-02 14:46 | NUR ---
Nursing Progress Note: Legal hold: 5250 Client on involuntary status for DTS Report received from nurse with use of SBAR: Lyric Malik RN Why are they here: Pt is a 50 y/o female admitted to [facility] at 1440 for DTS. Pt self presented to the ED for DTS due to "anger, rage, thoughts". Tox screen +methamphetamine. Reports she has not been taking medications. Assessment What has happened this shift: Received pt. sleeping in bed at the beginning of the shift, she was awoken to attend breakfast in the Group Room, and afterwards immediately returned back to bed as is her routine. Attempted to complete 1:1 at bedside, pt. continues to avoid eye contact, and today keeps her eyes closed during the interview. She denies all s/s, and responds to closed-ended questions only with 1-2 word answers. Pt. again states in a dismissive manner, "Im fine." The executive secretary social welfare, also attempted to interview pt. regarding her interest in entering a drug rehabilitation program. Per her report, pt. was also very dismissive and evasive during this interview, and when questioned regarding her interest in attending rehabilitation, pt. stated, "I don't know, that's not my plan." pt. was placed on a 5250 hold, and she appeared to accept this well. Later, pt. again reported anxiety and requested PRN Ativan, administered with effectiveness. This rfp writer held pt's scheduled afternoon Propranolol r/t decreased BP. Pt. continued to isolate in bed throughout most of the day, getting up for meals and snacks. S/I, H/I: Denies A/VH: Denies, does not appear to be internally preoccupied. Sleep: Sleep hours are 10, and pt. continues to nap throughout most of the day. She does attend group. ADL's: Pt. requires direction and encouragement Group attendance: No Were meds taken: Pt. again refused Nicotine Patch Any med S/E: None Mental Status Exam Appearance: Hair and clothing disheveled r/t laying in bed Eye contact: Poor, pt. covers her head with blankets during 1:1 or closes her eyes Behavior: Cooperative, fatigued, withdrawn, restless, anxious, guarded, and isolative Speech: Soft, pt. responds to direct questions only with a 1-2 word response Mood: Guarded Affect: Constricted Thought process: Poverty of thought with possible thought blocking Thought Content: Unable to assess, however pt. presents with anxiety Cognition: A&O X3 Insight: Poor Judgment: Poor Interventions PRN's used: Ativan Therapeutic interventions: Ensured contract for safety, maintained a safe and therapeutic environment, provided clear and simple instructions, encouraged participation on the unit, monitored behaviors and need for intervention, provided active listening and positive encouragement, and maintained Q15min safety checks. Restraints/seclusion/emergency medication: N/A Justification of Continued Inpatient Treatment: Per LENNY Wood, pt. will continue medications and requirs a safe and supportive environment. She is being evaluated for rehab.
[2021-02-02 19:00] VITALS: BP 88/52
[2021-02-02] MEDS: OLANZAPINE 5 MG TABLET PO SCH (20:10)
[2021-02-02] MEDS: traZODone 50mg tablet PO PRN (20:11)
--- NOTE | 2021-02-02 23:49 | NUR ---
Nursing Progress Note: Legal hold: 5250 Client on involuntary status for DTS Report received from MUNDO De Leon with use of SBAR. Why are they here: Pt is a 50 y/o female admitted to [facility] at 1440 for DTS. Pt self presented to the ED for DTS due to "anger, rage, thoughts". Tox screen +methamphetamine. Reports she has not been taking medications. Assessment What has happened this shift: Patient is isolating in her room following shift change. Patient looks clean, her hair unkept. Patient avoids eye contact. Patient exhibits anxiety, she rocks back and forth, some repetitive movements. Patient denies H/I, S/I, or any hallucinations. Patient admits to mild depression and problems sleeping. Patient is medication compliant. S/I, H/I: Denies. A/VH: Denies. Sleep: Will tally at 0500 hours. ADL's: Requires prompting. Group attendance: No group on production supervisor off shift. Were meds taken: Yes, medication compliant. Inderol held secondary to mild hypotension. Any med S/E: None noted or reported. Mental Status Exam Appearance: Somewhat disheveled. Eye contact: Poor. Behavior: Cooperative, isolating, anxious, some agitation. Speech: WNL. Mood: Guarded, isolative. Affect: Constricted Thought process: Thought blocking? Thought Content: Will not discuss. Cognition: A&O X3 not to situation. (Per previous eval.) Insight: Poor. Judgment: Poor. Interventions PRN's used: Ativan, Trazadone. Therapeutic interventions: Ensured contract for safety, maintained a safe and therapeutic environment, provided clear and simple instructions, encouraged participation on the unit, monitored behaviors and need for intervention, provided active listening and positive encouragement, and maintained Q15min safety checks. Restraints/seclusion/emergency medication: N/A Justification of Continued Inpatient Treatment: Per LENNY Wood, pt. will continue medications and requirs a safe and supportive environment. She is being evaluated for rehab.
[2021-02-03] MEDS: levoTHYROXINE 125mcg tablet PO SCH (07:22)
[2021-02-03 08:00] VITALS: BP 104/82
[2021-02-03] MEDS: nicotine 14mg patch - 24hr TD SCH (08:00)
[2021-02-03] MEDS: atorvastatin 20mg tablet PO SCH (08:05)
[2021-02-03] MEDS: propranolol 10mg tablet PO SCH ×3 (08:06→20:42)
[2021-02-03] MEDS: topiramate 25mg tablet PO SCH ×2 (08:06→20:39)
[2021-02-03] MEDS: LORazepam 1 MG tablet PO PRN ×2 (12:10→19:25)
[2021-02-03 12:57] VITALS: BP 98/62
--- NOTE | 2021-02-03 15:33 | NUR ---
Nursing Progress Note: Legal hold: 5250 Client on involuntary status for DTS Report received from nurse with use of SBAR: Lyric Malik RN Why are they here: Pt is a 50 y/o female admitted to [facility] at 1440 for DTS. Pt self presented to the ED for DTS due to "anger, rage, thoughts". Tox screen +methamphetamine. Reports she has not been taking medications. Assessment What has happened this shift: Pt got up for breakfast. Pt was cooperative with all medications except her nicotine patch which she has refused for the past 3 days. Pt stated she doesn't want it, it gives her bad dreams. Attempted medication education about removing the patch at night but pt was not interested and repeated again that she doesn't want it. Nicotine patch D/c'd. Pt's 1300 propranolol was held due to decreased BP. BP with the vitals machine was 85/62, rechecked manually it was 98/62. Pt is constricted and mostly avoidant of staff unless she needs something. Pt is isolative to self. Pt was given a PRN Ativan 1 mg at 1210 while this nurse was at lunch. At 1400, pt approached this RN and asked, "are there any meds for me to take? I'm feeling weird." Asked pt what she meant by "weird." Pt had difficulty elaborating on how she felt. Asked her if she felt anxious, she replied,"yeah." pt had no further PRNs to give her. Asked her if she had seen the doctor yet today. Pt replied, "no." Suggested she let the doctor know about how she was feeling. Pt returned to her room, have not heard from her since. Notified LENNY Wood that 1300 propranolol was held and pt's c/o feeling weird and probably anxious even after receiving Ativan. Obtained new order for hydroxyzine 50 mg PO Q6H PRN. S/I, H/I: Pt denies. A/VH: Pt denies. Sleep: Pt slept 7 hours last night per noc shift report, pt naps intermittently during the day. ADL's: Independent. Group attendance: No Were meds taken: Yes, all but nicotine patch. Any med S/E: None Mental Status Exam Appearance: Middle aged woman with dark hair pulled back in a ponytail dressed in personal clothing. Eye contact: Poor Behavior: Cooperative though isolative to self. Speech: Clear, soft, minimal. Mood: Anxious Affect: Constricted, anxious. Thought process: Linear Thought Content: She feels "weird." Cognition: A&O X3 Insight: Poor Judgment: Poor Interventions PRN's used: Ativan Therapeutic interventions: 1:1 assessment, encouraged pt to express her thoughts and feelings, ensured contract for safety, maintained a safe and therapeutic environment, provided clear and simple instructions, encouraged participation on the unit, medication administration/education/monitoring, provided positive reinforcement, and maintained Q15 minute safety checks. Restraints/seclusion/emergency medication: N/A Justification of Continued Inpatient Treatment: Per LENNY Wood, pt is coming down off meth. Pt needs more time for medication adjustment and stabilization. She is being evaluated for rehab.
[2021-02-03 20:00] VITALS: BP 91/55
[2021-02-03] MEDS: traZODone 50mg tablet PO PRN (20:39)
[2021-02-03] MEDS: OLANZAPINE 5 MG TABLET PO SCH (20:39)
--- NOTE | 2021-02-04 02:16 | NUR ---
Nursing Progress Note: Legal hold: 5250 Client on involuntary status for DTS Report received from MUNDO De Leon with use of SBAR. Why are they here: Pt is a 50 y/o female admitted to [facility] at 1440 for DTS. Pt self presented to the ED for DTS due to "anger, rage, thoughts". Tox screen +methamphetamine. Reports she has not been taking medications. Assessment What has happened this shift: In bed isolating, in bed after shift change. States "I don't want to talk." Patient states she "want all med's, yes please." Patient denies S/I, H/I, or any hallucination. No BM today. S/I, H/I: Denies. A/VH: Denies. Sleep: Will tally at 0500 hours. ADL's: Requires prompting. Group attendance: No group on night assistant. Were meds taken: Yes, medication compliant. Inderol held secondary to mild hypotension. Any med S/E: None noted or reported. Mental Status Exam Appearance: Somewhat disheveled. Eye contact: Poor. Behavior: Cooperative, isolating, anxious, some agitation. Speech: WNL. Mood: Guarded, isolative. Affect: Constricted Thought process: Thought blocking? Thought Content: Will not discuss. Cognition: A&O X3 not to situation. (Per previous eval.) Insight: Poor. Judgment: Poor. Interventions PRN's used: Ativan, Trazadone. Therapeutic interventions: Ensured contract for safety, maintained a safe and therapeutic environment, provided clear and simple instructions, encouraged participation on the unit, monitored behaviors and need for intervention, provided active listening and positive encouragement, and maintained Q15min safety checks. Restraints/seclusion/emergency medication: N/A Justification of Continued Inpatient Treatment: Per LENNY Wood, pt. will continue medications and requirs a safe and supportive environment. She is being evaluated for rehab.
[2021-02-04 08:00] VITALS: BP 88/52
[2021-02-04] MEDS: topiramate 25mg tablet PO SCH ×2 (08:01→20:39)
[2021-02-04] MEDS: atorvastatin 20mg tablet PO SCH (08:01)
[2021-02-04] MEDS: propranolol 10mg tablet PO SCH ×3 (08:01→20:39)
[2021-02-04] MEDS: levoTHYROXINE 125mcg tablet PO SCH (08:01)
[2021-02-04] MEDS: LORazepam 1 MG tablet PO PRN (12:58)
--- NOTE | 2021-02-04 15:52 | NUR ---
Nursing Progress Note: Legal hold: 5250 Client on involuntary status for DTS Report received from nurse with use of SBAR: Alcides RN Why are they here: Pt is a 50 y/o female admitted to [facility] at 1440 for DTS. Pt self-presented to the ED for DTS due to "anger, rage, thoughts". Tox screen +methamphetamine. Reports she has not been taking medications. Assessment What has happened this shift: Patient asleep at start of shift. Eats meals in community room and interacts appropriately with peers. Isolates in her room and appears guarded. Answers to direct questions but does not offer conversation or any personal information. In afternoon patient come out of her room more. Some interaction with peers which appears appropriate. Cooperative but guarded. S/I, H/I: Denies A/VH: Denies Sleep: 7 hours per NOC. Naps frequently throughout day. ADL's: Independent. Group attendance: N/A Were meds taken: Yes Any med S/E: None noted or reported Mental Status Exam Appearance: Middle aged woman with dark hair pulled back in a messy ponytail dressed in personal clothing. Somewhat disheveled. Eye contact: Fair Behavior: Cooperative though isolative to self. Speech: Clear, soft, minimal. Mood: Appears depressed, states she is Fine. Affect: blunted Thought process: linear Thought Content: Meeting needs. Cognition: A&O X4 Insight: Poor Judgment: Poor Interventions PRN's used: N/A Therapeutic interventions: 1:1 assessment, encouraged pt to express her thoughts and feelings, ensured contract for safety, maintained a safe and therapeutic environment, provided clear and simple instructions, encouraged participation on the unit, medication administration/education/monitoring, provided positive reinforcement, and maintained Q15 minute safety checks. Restraints/seclusion/emergency medication: N/A Justification of Continued Inpatient Treatment: Per LENNY Wood, pt is coming down off meth. Pt needs more time for medication adjustment and stabilization. She is being evaluated for rehab.
[2021-02-04 20:18] VITALS: BP 95/61
[2021-02-04] MEDS: OLANZAPINE 5 MG TABLET PO SCH (20:39)
--- NOTE | 2021-02-05 01:38 | NUR ---
Nursing Progress Note: Legal hold: 5250 Client on involuntary status for DTS Report received from nurse with use of SBAR: MUNDO De Leon Why are they here: Pt is a 50 y/o female admitted to [facility] at 1440 for DTS. Pt self-presented to the ED for DTS due to "anger, rage, thoughts". Tox screen +methamphetamine. Reports she has not been taking medications. Assessment What has happened this shift: pt in bed at shift change; upset, stating her room mate is snoring; pt sleepy, isolates in room & guarded; cooperative in having the physical assessment done S/I, H/I: Denies A/VH: Denies Sleep: sleeping at this time; will continue to monitor ADL's: Independent. Group attendance: N/A Were meds taken: Yes Any med S/E: None noted or reported Mental Status Exam Appearance: dark hair pulled back in a ponytail; dressed in kahn long sleeved top & green scrub pants Eye contact: Fair Behavior: Cooperative though isolative to self. Speech: Clear, soft, minimal. Mood: unhappy with room mate snoring Affect: blunted Thought process: linear Thought Content: Meeting needs. Cognition: A&O X4 Insight: Poor Judgment: Poor Interventions PRN's used: N/A Therapeutic interventions: 1:1 assessment, encouraged pt to express her thoughts and feelings, ensured contract for safety, maintained a safe and therapeutic environment, provided clear and simple instructions, encouraged participation on the unit, medication administration/education/monitoring, provided positive reinforcement, and maintained Q15 minute safety checks. Restraints/seclusion/emergency medication: N/A Justification of Continued Inpatient Treatment: Per LENNY Wood, pt is coming down off meth. Pt needs more time for medication adjustment and stabilization. She is being evaluated for rehab.
[2021-02-05] MEDS: atorvastatin 20mg tablet PO SCH (07:20)
[2021-02-05] MEDS: topiramate 25mg tablet PO SCH ×2 (07:21→20:09)
[2021-02-05] MEDS: levoTHYROXINE 125mcg tablet PO SCH (07:21)
[2021-02-05] MEDS: propranolol 10mg tablet PO SCH ×3 (07:22→20:09)
[2021-02-05] MEDS: nicotine 7mg patch - 24hr TD SCH (07:49)
[2021-02-05 08:57] VITALS: BP 100/58
[2021-02-05] MEDS: LORazepam 1 MG tablet PO PRN ×2 (09:54→20:09)
[2021-02-05] MEDS ORDERED: NICOTINE POLACRILEX 2 MG LOZENGE BC PRN (10:40)
--- NOTE | 2021-02-05 12:14 | NUR ---
CM-Linkages Presenting Issues: Pt met w/[facility]'s CM last week and completed the [facility] [place] referral process & was referred to [facility]. Pt's to f/u w/[facility] to schedule her admission. Last Friday [facility]'s [facility] Navigator attempted to engage pt and offered to assist pt w/the f/u call to [facility], pt declined. Interventions: Clinician met w/pt this morning and offered support for her to f/u w/[facility], pt again declined. [facility] was informed of pt not ready to accept [facility] services @ this time. At the request of the attending PA, [facility] Navigator met w/pt again, provided pt w/contact info for [facility] and encouraged pt to contact [facility]. Plan: Clinician will f/u with pt re her communication w/[facility] & engage pt in dcp activities. Saskia Del Rosario LCSW Addendum: 02/05/21 at 1317 by Saskia Del Rosario SS Amended: Links added.
--- NOTE | 2021-02-05 13:52 | NUR ---
Nursing Progress Note: Legal hold: 5250 Client on involuntary status for DTS Report received from nurse with use of SBAR: MUNDO Steinberg Why are they here: Pt is a 50 y/o female admitted to [facility] at 1440 for DTS. Pt self-presented to the ED for DTS due to "anger, rage, thoughts". Tox screen +methamphetamine. Reports she has not been taking medications. Assessment What has happened this shift: Pt in bed at change of shift. Pt up for breakfast but back to bed right after. Pt anxious around 10am and received Ativan. Pt did go out to the patio today. Pt has been accepted to the [facility] for [facility]. Pt is having her 5250 hearing today. Pt gets very upset when asked about her discharge plan. PT plans to win her court hearing today and leave today. Pt states she made her plans by herself so she will not be discussing it with us. Pt stopped talking after this. S/I, H/I: Denies A/VH: Denies Sleep: sleeping at this time; will continue to monitor ADL's: Independent. Group attendance: N/A Were meds taken: Yes Any med S/E: None noted or reported Mental Status Exam Appearance: dark hair pulled back in a ponytail; dressed in kahn long sleeved top & green scrub pants Eye contact: Fair Behavior: Cooperative though isolative to self. Speech: Clear, soft, minimal. Mood: fine Affect: blunted Thought process: linear Thought Content: Meeting needs. Cognition: A&O X4 Insight: Poor Judgment: Poor Interventions PRN's used: N/A Therapeutic interventions: 1:1 assessment, encouraged pt to express her thoughts and feelings, ensured contract for safety, maintained a safe and therapeutic environment, provided clear and simple instructions, encouraged participation on the unit, medication administration/education/monitoring, provided positive reinforcement, and maintained Q15 minute safety checks. Restraints/seclusion/emergency medication: N/A Justification of Continued Inpatient Treatment: Per LENNY Wood, pt is coming down off meth. Pt needs more time for medication adjustment and stabilization. She is accepted for rehab.
--- NOTE | 2021-02-05 14:14 | NUR ---
Pt. attend group today. We talked about Boundaries, the different kinds and how to communicate our boundaries to others. Pt engaged well in the group today. She shared very early in the group some of her own personal boundaries. She shared that when she gets triggered she will walk away from the situation. That's how she deals with her feelings. She also reported that she doesn't like it when peers address her about issues, she prefers staff does it. She let the group know that if they have a problem with her they would prefer they tell staff and and then let staff talk to her. She was alert and oriented X 4. Her thought content and thought process appeared WNL. Her demeanor was calm though while she was talking she became animated with a bit of an aggressive demeanor. She stayed for most of the group and listened to her peers well. Poppy Johnson, PATRICIA
[2021-02-05] MEDS: hydrOXYzine 25 MG tablet PO PRN (16:08)
[2021-02-05 20:00] VITALS: BP 105/73
[2021-02-05] MEDS: OLANZAPINE 5 MG TABLET PO SCH (20:08)
--- NOTE | 2021-02-06 01:55 | NUR ---
Nursing Progress Note: Juju Lock Legal hold: 5250 Client on involuntary status for DTS Report received from nurse with use of SBAR: MUNDO De Leon Why are they here: Pt is a 50 y/o female admitted to [facility] at 1440 for DTS. Pt self-presented to the ED for DTS due to "anger, rage, thoughts". Tox screen +methamphetamine. Reports she has not been taking medications. Assessment What has happened this shift: Pt irritable and anxious awaiting for dinner tray in the community room. She states she did not have a great day and is feeling grumpy. She requests Ativan. 1MG Ativan given with good effect. She states shes upset because she is supposed to go to [facility] and the day staff told her she couldnt have any Ativan before she went there. Pt medication compliant and went to bed shortly after snacks. S/I, H/I: Denies A/VH: Denies Sleep: ADL's: Independent. Group attendance: N/A Were meds taken: Yes Any med S/E: None noted or reported Mental Status Exam Appearance: dark hair pulled back in a ponytail; dressed in kahn long sleeved top & green scrub pants Eye contact: Fair Behavior: Cooperative though isolative to self. Speech: Clear, soft, minimal. Mood: irritable Affect: blunted Thought process: linear Thought Content: Meeting needs. Cognition: A&O X4 Insight: Poor Judgment: Poor Interventions PRN's used: N/A Therapeutic interventions: 1:1 assessment, encouraged pt to express her thoughts and feelings, ensured contract for safety, maintained a safe and therapeutic environment, provided clear and simple instructions, encouraged participation on the unit, medication administration/education/monitoring, provided positive reinforcement, and maintained Q15 minute safety checks. Restraints/seclusion/emergency medication: N/A Justification of Continued Inpatient Treatment: Per LENNY Wood, pt is coming down off meth. Pt needs more time for medication adjustment and stabilization. She is accepted for rehab.
[2021-02-06 07:38] VITALS: BP 104/72
[2021-02-06] MEDS: levoTHYROXINE 125mcg tablet PO SCH (07:50)
[2021-02-06] MEDS: propranolol 10mg tablet PO SCH ×3 (07:50→19:56)
[2021-02-06] MEDS: topiramate 25mg tablet PO SCH ×2 (07:50→19:56)
[2021-02-06] MEDS: atorvastatin 20mg tablet PO SCH (07:50)
[2021-02-06] MEDS: nicotine 7mg patch - 24hr TD SCH (07:52)
--- NOTE | 2021-02-06 08:54 | NUR ---
CM Presenting Issues: Pt's 5250 was upheld yesterday, pt was not pleased; pt wanted to d/c and go to [place] and go to [facility] from the [place]. Pt became irritated and rude to staff & other patients yesterday evening. Interventions: Clinician attempted to engage pt in processing her disappointment, however pt refused to engage. Clinician met w/pt's RN and updated her on pt's dcp and her disposition. Plan: Pt to d/c tomorrow and transfer to [facility]. Saskia Del Rosario LCSW Addendum: 02/06/21 at 0924 by Saskia Del Rosario SS Amended: Links added.
[2021-02-06] MEDS ORDERED: HYDR-3686 PO (11:35)
[2021-02-06] MEDS ORDERED: ATOR20TA66 PO (11:35)
[2021-02-06] MEDS ORDERED: PROP10TA10 PO (11:35)
[2021-02-06] MEDS ORDERED: LEVO125T8 PO (11:35)
[2021-02-06] MEDS ORDERED: OLAN5TAB75 PO (11:35)
[2021-02-06] MEDS ORDERED: TOP25T PO (11:35)
--- NOTE | 2021-02-06 11:42 | NUR ---
Nursing Progress Note: Juju Lock Legal hold: 5250 Client on involuntary status for DTS Report received from nurse with use of SBAR: MUNDO De Leon Why are they here: Pt is a 50 y/o female admitted to [facility] at 1440 for DTS. Pt self-presented to the ED for DTS due to "anger, rage, thoughts". Tox screen +methamphetamine. Reports she has not been taking medications. Assessment What has happened this shift: Pt up and ate breakfast in the community room. Pt calm and cooperative with care. Pt is medication compliant and went back to her room to lay down. Pt paces the hallways and is seen on the phone. No outbursts this AM shift. S/I, H/I: Denies A/VH: Denies Sleep: ADL's: Independent. Group attendance: N/A Were meds taken: Yes Any med S/E: None noted or reported Mental Status Exam Appearance: dark hair pulled back in a ponytail; dressed in kahn long sleeved top & green scrub pants Eye contact: Fair Behavior: Cooperative though isolative to self. Speech: Clear, soft, minimal. Mood: irritable Affect: blunted Thought process: linear Thought Content: Meeting needs. Cognition: A&O X4 Insight: Poor Judgment: Poor Interventions PRN's used: N/A Therapeutic interventions: 1:1 assessment, encouraged pt to express her thoughts and feelings, ensured contract for safety, maintained a safe and therapeutic environment, provided clear and simple instructions, encouraged participation on the unit, medication administration/education/monitoring, provided positive reinforcement, and maintained Q15 minute safety checks. Restraints/seclusion/emergency medication: N/A Justification of Continued Inpatient Treatment: Per LENNY Wood, pt is coming down off meth. Pt needs more time for medication adjustment and stabilization. She is accepted for rehab.
[2021-02-06] MEDS: LORazepam 1 MG tablet PO PRN ×2 (12:10→19:57)
[2021-02-06] MEDS: hydrOXYzine 25 MG tablet PO PRN (15:59)
[2021-02-06] MEDS: OLANZAPINE 5 MG TABLET PO SCH (19:57)
[2021-02-06 20:35] VITALS: BP 96/60
--- NOTE | 2021-02-06 23:39 | NUR ---
Nursing Progress Note: Juju Lock Legal hold: 5250 Client on involuntary status for DTS Report received from nurse with use of SBAR: MUNDO De Leon Why are they here: Pt is a 50 y/o female admitted to [facility] at 1440 for DTS. Pt self-presented to the ED for DTS due to "anger, rage, thoughts". Tox screen +methamphetamine. Reports she has not been taking medications. Assessment What has happened this shift: Pt up in pat at shift change. Pt asked for her meds early and a prn Ativan. Pt states she istired and ready for bed. Pt returned to her room and napped till snack time was awakened for snack and meds ate snack was med compliant and went to sleep S/I, H/I: Denies A/VH: Denies Sleep: See sleep assessment ADL's: Independent. Group attendance: N/A Were meds taken: Yes Any med S/E: None noted or reported Mental Status Exam Appearance: dark hair pulled back in a ponytail; dressed in kahn long sleeved top & green scrub pants Eye contact: Fair Behavior: Cooperative though isolative to self. Speech: Clear, soft, minimal. Mood: irritable Affect: blunted Thought process: linear Thought Content: Meeting needs. Cognition: A&O X4 Insight: Poor Judgment: Poor Interventions PRN's used: Ativan Therapeutic interventions: 1:1 assessment, encouraged pt to express her thoughts and feelings, ensured contract for safety, maintained a safe and therapeutic environment, provided clear and simple instructions, encouraged participation on the unit, medication administration/education/monitoring, provided positive reinforcement, and maintained Q15 minute safety checks. Restraints/seclusion/emergency medication: N/A Justification of Continued Inpatient Treatment: Per LENNY Wood, pt is coming down off meth. Pt needs more time for medication adjustment and stabilization. She is accepted for rehab.
[2021-02-07] MEDS: levoTHYROXINE 125mcg tablet PO SCH (07:00)
[2021-02-07] MEDS: topiramate 25mg tablet PO SCH (07:16)
[2021-02-07] MEDS: atorvastatin 20mg tablet PO SCH (07:16)
[2021-02-07] MEDS: propranolol 10mg tablet PO SCH (07:16)
[2021-02-07] MEDS: nicotine 7mg patch - 24hr TD SCH (07:16)
[2021-02-07 07:58] VITALS: BP 88/71
[2021-02-07] MEDS: LORazepam 1 MG tablet PO PRN (09:05)
--- NOTE | 2021-02-07 13:24 | NUR ---
Discharge Note: Patient scheduled for discharge to [facility] for inpatient program which patient is agreeable to. Per social service agency director; receiving facility was to send transport at 10:00. At 10:25 when transport had not yet arrived patient became agitated and yells at staff demanding immediate discharge. Communication with [facility] revealed that transport was not sent and a cab ride was offered to patient. Patient demands immediate discharge and states she has her own car and will drive herself to [facility]. RNIqra confirms patients right to discharge to self care and patient is released from the facility with all of her belongings at 10:38. No acute distress noted. Discharge packet reviewed with patient including medications, follow up plan and smoking cessation information. Given the following discharge instructions: Pharmacy: Send written Script with patient Fax packet to: [facility] @ [phone] Follow-Up: Patient has been scheduled/referred to the following providers for post-hospital discharge and aftercare treatment. Psychiatrist: You are encouraged to attend [facility] Walk-In clinic on Friday-Friday from 8:30AM-3:00PM to establish outpatient mental health services. [address] [place] [address] Primary Care Provider: DOMENIC Montoya Discharge Address: [facility] Transportation: [facility] [place] to send airport shuttle driver @ 10:00 AM Patient given community crisis services information and National suicide hotline handout. Please call [phone] for your second outpatient smoking cessation appointment. Resources for education regarding mental illness: [address] [address] For urgent mental health crisis needs please contact Mobile Crisis Outreach Team Friday through Friday 8:30a to 5:00pm. Mobile Crisis Outreach Team [address] [place] [phone]
== END 2021-02-07 10:38 | DRG 885 ==
LOC: ER 15:12 → ED HOLD 01-30 10:56 → ADULT MH 01-30 14:42
PROVIDERS: ADMIT Psychiatry & Neurology Psychiatry; ATTEND Psychiatry & Neurology Psychiatry
DX: F31.9 Bipolar disorder, unspecified (principal); R45.851 Suicidal ideations; G40.909 Epilepsy, unspecified, not intractable, without status epilepticus; K21.9 Gastro-esophageal reflux disease without esophagitis; G89.29 Other chronic pain; F41.9 Anxiety disorder, unspecified; E87.6 Hypokalemia; F15.10 Other stimulant abuse, uncomplicated; Z20.822 Contact with and (suspected) exposure to COVID-19; F17.210 Nicotine dependence, cigarettes, uncomplicated; E03.9 Hypothyroidism, unspecified; E78.5 Hyperlipidemia, unspecified; Z98.891 History of uterine scar from previous surgery; Z90.49 Acquired absence of other specified parts of digestive tract; Z56.0 Unemployment, unspecified; Z88.0 Allergy status to penicillin; Z79.899 Other long term (current) drug therapy; Z87.440 Personal history of urinary (tract) infections; Z59.0 Homelessness; Z71.6 Tobacco abuse counseling
CPT/HCPCS: 36415; 80048; 80053; 80061; 80305; 80320; 81025; 83036; 84439; 84443; 84481; 85025; 87081; 87635; 96365; 96366; 99285; C9803; J3480; Q0177

== ENCOUNTER 2022-01-13 07:15 | Emergency (ER) | payer MEDICARE, MEDICAID ==
[~2022-01-13] VITALS: Ht 165.1 cm; Wt 81.0 kg
[~2022-01-13 07:15] MED LIST changes: +ATOR20TA66 PO; +HYDR-3686 PO; -LEVO100T9 PO; +LEVO125T8 PO; +OLAN5TAB75 PO; +PROP10TA10 PO; +TOP25T PO
[2022-01-13] MEDS ORDERED: ibuprofen tablet 400 MG TABLET PO ONE (08:50)
[2022-01-13] MEDS ORDERED: acetaminophen 325mg tablet PO ONE (08:50)
[2022-01-13 09:59] LABS: CLARITY,URINE SLIGHTLY CLOUDY (Clear); COLOR,URINE YELLOW (Yellow); GLUCOSE, URINE NEGATIVE (Neg); KETONES,URINE NEGATIVE (Neg); LEUKOCYTE ESTERASE ,URINE NEGATIVE (Neg); NITRITES, URINE NEGATIVE (Neg); OCCULT BLOOD,URINE SMALL (Neg); PROTEIN,URINE NEGATIVE (Neg); UROBILINOGEN,URINE 0.2 E.U/dL (0.2-1.0)
[2022-01-13 10:01] LABS: UA COLLECTION TYPE CLN CATCH MIDSTREAM
[2022-01-13 10:11] LABS: WBC,URINE 0-4 /HPF (0-4)
[2022-01-13 10:12] LABS: BACTERIA,URINE 2+ /HPF (Neg); MUCUS STRANDS MANY /LPF (Neg); RBC,URINE 0-2 /HPF (0-2); SQUAMOUS EPITHELIAL CELL,UR MANY /LPF (FEW)
[2022-01-13 10:14] VITALS: BP 133/85
== END 2022-01-13 10:21 | disposition home or self-care (01) ==
LOC: ER 07:15
DX: B34.9 Viral infection, unspecified (principal); Z20.822 Contact with and (suspected) exposure to COVID-19; R53.81 Other malaise; K21.9 Gastro-esophageal reflux disease without esophagitis; E03.9 Hypothyroidism, unspecified; G89.29 Other chronic pain; F41.9 Anxiety disorder, unspecified; F31.9 Bipolar disorder, unspecified; F15.90 Other stimulant use, unspecified, uncomplicated; Z86.69 Personal history of other diseases of the nervous system and sense organs; Z87.440 Personal history of urinary (tract) infections; Z90.49 Acquired absence of other specified parts of digestive tract; Z98.890 Other specified postprocedural states; Z72.89 Other problems related to lifestyle; Z60.2 Problems related to living alone; Z59.00 Homelessness unspecified; Z88.0 Allergy status to penicillin; Z79.899 Other long term (current) drug therapy
CPT/HCPCS: 71045; 81001; 87635; 99284; C9803

== ENCOUNTER 2023-03-26 08:05 | Emergency (ER) | payer MEDICARE, MEDICAID ==
[~2023-03-26] VITALS: Ht 167.6 cm; Wt 85.9 kg
[2023-03-26 08:11] VITALS: BP 139/97; PULSE 95; RESP 16; TEMP 98; O2SAT 100
== END 2023-03-26 10:50 | disposition left against medical advice (07) ==
LOC: ER 08:06
DX: M79.601 Pain in right arm (principal); Z53.21 Procedure and treatment not carried out due to patient leaving prior to being seen by health care provider
CPT/HCPCS: 99281

== ENCOUNTER 2023-06-25 11:28 | Emergency (ER) | payer MEDICARE, MEDICAID ==
[~2023-06-25] VITALS: Ht 167.6 cm; Wt 82.6 kg
[2023-06-25 12:23] LABS: BASOPHILS % (AUTO) 0.7 % (0-1); EOSINOPHILS # (AUTO) 0.2 X10'3 (0-0.9); EOSINOPHILS % (AUTO) 5.7 % (0-6); HEMATOCRIT 39.1 % (35.0-45.0); LYMPHOCYTES # (AUTO) 0.9 X10'3 (1.1-4.8); LYMPHOCYTES % (AUTO) 28.4 % (21-51); MEAN CORPUSCULAR HEMOGLOBIN 30.7 PG (27.0-31.0); MEAN CORPUSCULAR HGB CONC 33.3 g/dL (33.0-36.5); MEAN CORPUSCULAR VOLUME 92.5 FL (78-98); MEAN PLATELET VOLUME 8.6 FL (7.4-10.4); MONOCYTES # (AUTO) 0.3 X10'3 (0-0.9); MONOCYTES % (AUTO) 7.9 % (2-12); NEUTROPHILS # (AUTO) 1.8 X10'3 (1.8-7.7); NEUTROPHILS % (AUTO) 57.3 % (42-75); PLATELET COUNT 168 X10'3 (140-440); RED BLOOD COUNT 4.23 X10'6 (4.20-5.60); RED CELL DISTRIBUTION WIDTH 11.6 % (11.5-14.5); WHITE BLOOD COUNT 3.2 X10'3 (4.5-11.0)
[2023-06-25 13:09] LABS: ALBUMIN 3.6 G/DL (3.4-5.0); ANION GAP 10 (8-16); BLOOD UREA NITROGEN 10 MG/DL (7-18); CALCIUM 8.8 MG/DL (8.5-10.1); CHLORIDE 106 MMOL/L (99-107); CREATININE 0.83 MG/DL (0.40-0.90); GLUCOSE 96 MG/DL (70-104); POTASSIUM 3.9 MMOL/L (3.5-5.1); PRO BRAIN NATRIURETIC PEPTIDE 54 PG/ML (0-125); SODIUM 142 MMOL/L (135-145); TOTAL CARBON DIOXIDE 26.5 MMOL/L (24-32); eCRCL 75 ML/MIN; eGFR 72 ML/MIN
[2023-06-25] MEDS ORDERED: CEFD300C3 PO (14:10)
[2023-06-25 14:11] VITALS: BP 120/84; PULSE 80; RESP 20; TEMP 98.1; O2SAT 97
== END 2023-06-25 14:22 | disposition home or self-care (01) ==
LOC: ER 11:29
DX: J20.9 Acute bronchitis, unspecified (principal); K21.9 Gastro-esophageal reflux disease without esophagitis; E03.9 Hypothyroidism, unspecified; F31.9 Bipolar disorder, unspecified; F15.90 Other stimulant use, unspecified, uncomplicated; Z88.0 Allergy status to penicillin; Z79.2 Long term (current) use of antibiotics; Z79.899 Other long term (current) drug therapy; Z90.49 Acquired absence of other specified parts of digestive tract; Z98.890 Other specified postprocedural states
CPT/HCPCS: 36415; 71045; 80048; 83880; 84484; 85025; 93005; 99285

== ENCOUNTER 2023-08-13 07:27 | Day surgery (SDC) | payer MEDICARE, MEDICAID ==
[2023-08-11 14:11] LABS: BASOPHILS % (AUTO) 0.8 % (0-1); EOSINOPHILS # (AUTO) 0.3 X10'3 (0-0.9); EOSINOPHILS % (AUTO) 4.2 % (0-6); LYMPHOCYTES # (AUTO) 2.3 X10'3 (1.1-4.8); LYMPHOCYTES % (AUTO) 36.3 % (21-51); MEAN CORPUSCULAR HEMOGLOBIN 30.3 PG (27.0-31.0); MEAN CORPUSCULAR VOLUME 89.2 FL (78-98); MEAN PLATELET VOLUME 8.4 FL (7.4-10.4); MONOCYTES # (AUTO) 0.4 X10'3 (0-0.9); MONOCYTES % (AUTO) 6.6 % (2-12); NEUTROPHILS # (AUTO) 3.3 X10'3 (1.8-7.7); NEUTROPHILS % (AUTO) 52.1 % (42-75); PRE OP HEMATOCRIT 40.1 % (35.0-45.0); PRE OP HEMOGLOBIN 13.6 g/dL (12.0-16.0); PRE OP PLATELET COUNT 213 X10'3 (140-440); PRE OP WHITE BLOOD COUNT 6.3 10'3 (4.8-10.8); RED BLOOD COUNT 4.49 X10'6 (4.20-5.60); RED CELL DISTRIBUTION WIDTH 12.4 % (11.5-14.5)
[2023-08-11 14:37] LABS: ALBUMIN 3.7 G/DL (3.4-5.0); ALKALINE PHOSPHATASE 65 IU/L (46-116); BLOOD UREA NITROGEN 8 MG/DL (7-18); BUN/CREATININE RATIO 8.3 (10.0-20.0); CALCIUM 8.2 MG/DL (8.5-10.1); CHLORIDE 105 MMOL/L (99-107); CREATININE 0.96 MG/DL (0.40-0.90); PRE OP ALT 46 U/L (30-65); PRE OP ANION GAP 9 (8-16); PRE OP AST 33 U/L (10-37); PRE OP BILIRUB, TOTAL 0.5 MG/DL (0.0-1.0); PRE OP GLUCOSE 86 MG/DL (70-104); PRE OP POTASSIUM 3.8 MMOL/L (3.4-5.1); PRE OP SODIUM 144 MMOL/L (135-145); THYROID STIMULATING HORMONE 2.66 ulU/ml (0.34-4.50); TOTAL PROTEIN 7.4 G/DL (6.4-8.2); eGFR 61 ML/MIN
[2023-08-11 15:05] LABS: BILIRUBIN,URINE NEGATIVE (Neg); CLARITY,URINE CLEAR (Clear); COLOR,URINE YELLOW (Yellow); GLUCOSE, URINE NEGATIVE (Neg); KETONES,URINE NEGATIVE (Neg); LEUKOCYTE ESTERASE ,URINE NEGATIVE (Neg); NITRITES, URINE NEGATIVE (Neg); OCCULT BLOOD,URINE TRACE-INTACT (Neg); PH,URINE 5.5 (4.8-8.0); PROTEIN,URINE NEGATIVE (Neg); UROBILINOGEN,URINE 0.2 E.U/dL (0.2-1.0)
[2023-08-11 15:11] LABS: UA COLLECTION TYPE CLN CATCH MIDSTREAM
[2023-08-11 15:13] LABS: SQUAMOUS EPITHELIAL CELL,UR FEW /LPF (FEW)
[2023-08-11 15:14] LABS: BACTERIA,URINE FEW /HPF (Neg); RBC,URINE 0-2 /HPF (0-2); WBC,URINE NONE SEEN /HPF (0-4)
[2023-08-13] VITALS (9 sets, daily range): BP systolic 106–118; BP diastolic 62–74; PULSE 82–100; RESP 13–16; TEMP 98.3; O2SAT 97–100
[~2023-08-13] VITALS: Ht 167.6 cm; Wt 83.1 kg
[2023-08-13] MEDS: cefazolin 2gm/D5W 100mL 100 ML IV ONE (05:30)
[~2023-08-13 07:27] MED LIST changes: +ALBU90AE INH; +ATOR10TA70 PO; -ATOR20TA66 PO; +CHOL20002 PO; +ESTR0.5T28 PO; -HYDR-3686 PO; +LEVO125T PO; -LEVO125T8 PO; +LUMA21CA PO; -OLAN5TAB75 PO; +OMEP40CA21 PO; -PROP10TA10 PO; -TOP25T PO; +albuterol 2.5 MG/3 ML nebule NEB ONE
[2023-08-13] MEDS: famotidine 20mg tablet PO ONE (08:18)
[2023-08-13] MEDS: ringers solution, lacted 1,000 ML IV SCH (08:19)
[2023-08-13] MEDS ORDERED: enalaprilat dihydrate 2.5mg/2ml vial IV PRN (10:10)
[2023-08-13] MEDS ORDERED: ondansetron/PF 4mg/2ml inj IV PRN (10:10)
[2023-08-13] MEDS ORDERED: meperidine/PF 25mg/ml syringe IV PRN ×3 (10:10)
[2023-08-13] MEDS ORDERED: ringers solution, lacted 1,000 ML IV SCH (10:10)
[2023-08-13] MEDS ORDERED: morphine 4 MG/ML inj SYRINge IV PRN (10:10)
[2023-08-13] MEDS ORDERED: labetalol 20mg/4ml (5mg/ml) syringe IV PRN (10:10)
[2023-08-13] MEDS ORDERED: morphine 2 MG/ML inj. syringe IV PRN (10:10)
[2023-08-13] MEDS ORDERED: proCHLORperazine 10 MG/2 ml inj IV PRN (10:10)
[2023-08-13] MEDS ORDERED: sevoflurane 250ml liquid IH ONE (10:52)
[2023-08-13] MEDS ORDERED: MIDAZolam 1 MG/ML 5ML VIAL ONE (11:02)
[2023-08-13] MEDS ORDERED: fentaNYL/PF 50MCG/1 ML 2ML syringe ONE (11:02)
[2023-08-13] MEDS ORDERED: BUPIVAcaine/PF 7.5mg/ml (0.75%) 10ml vial ONE (11:15)
[2023-08-13] MEDS ORDERED: LIDOcaine 1%/PF 5ML 10 MG/ML VIAL ONE (12:42)
[2023-08-13] MEDS ORDERED: propofol inj 20 ML IV ONE (12:42)
[2023-08-13] MEDS ORDERED: ROPIVAcaine 0.5% (5mg/ml) 30ml vial ONE (12:43)
[2023-08-13] MEDS ORDERED: dexamethasone sod phosphate 4mg/ml inj. ONE (12:44)
== END 2023-08-13 14:00 | disposition home or self-care (01) ==
LOC: PAS 07:27
PROVIDERS: ATTEND Podiatrist Foot & Ankle Surgery
DX: M20.11 Hallux valgus (acquired), right foot (principal); G89.18 Other acute postprocedural pain; E03.9 Hypothyroidism, unspecified; E78.5 Hyperlipidemia, unspecified; J44.9 Chronic obstructive pulmonary disease, unspecified; F41.9 Anxiety disorder, unspecified; K21.9 Gastro-esophageal reflux disease without esophagitis; F17.200 Nicotine dependence, unspecified, uncomplicated; Z79.82 Long term (current) use of aspirin; Z79.890 Hormone replacement therapy; Z79.899 Other long term (current) drug therapy; Z90.49 Acquired absence of other specified parts of digestive tract; Z98.891 History of uterine scar from previous surgery; Z98.890 Other specified postprocedural states; Z88.5 Allergy status to narcotic agent
CPT/HCPCS: 28297; 36415; 64445; 64447; 73620; 80053; 81001; 82948; 84443; 85025; A6223; C1713; J0690; J1100; J2250; J2405; J2704; J2795; J3010; J3490; J7030; J7120; Z7506; Z7508; Z7512; A4215; A4618; A6449; A7000